=== PATIENT | female | born 1950 | race Native Hawaiian/Other Pacific Islander ===

== ENCOUNTER → 2019-08-06 | Outpatient (CLI) | payer MEDICARE, BC, OTHER ==
[2019-08-06 17:33] LABS: Chol/HDL Ratio 4.91; LDL Cholesterol,Calculated 106.8 mg/dL (0.0-131.0); VLDL Calculation 61.2 mg/dL (5.00-40.00)
== END ==
LOC: LABWHC1 08:58
PROVIDERS: ATTEND Internal Medicine Cardiovascular Disease
DX: E78.5 Hyperlipidemia, unspecified (principal)
CPT/HCPCS: 36415; 80061; 84450; 84460

== ENCOUNTER → 2019-10-01 | Outpatient (CLI) | payer MEDICARE, BC, OTHER ==
[2019-10-01 17:03] LABS: Chol/HDL Ratio 2.77; LDL Cholesterol,Calculated 39.2 mg/dL (0.0-131.0); VLDL Calculation 22.8 mg/dL (5.00-40.00)
== END | disposition home or self-care (01) ==
LOC: LABWHC1 09:10
PROVIDERS: ATTEND Internal Medicine Cardiovascular Disease
DX: E78.5 Hyperlipidemia, unspecified (principal)
CPT/HCPCS: 36415; 80061; 84450; 84460

== ENCOUNTER 2021-04-01 09:56 | Emergency (ER) | payer MEDICARE, OTHER ==
[2021-04-01] MEDS ORDERED: KETOROLAC 15 MG/ML 1 ML VIAL IM STA (10:25)
[2021-04-01] MEDS ORDERED: CYCLOBENZAPRINE 10 MG TAB PO STA (10:25)
[2021-04-01] MEDS ORDERED: LIDOCAINE 5% PATCH TOPICAL STA (10:25)
--- NOTE | 2021-04-01 10:54 | XR ---
EXAMINATION TYPE: XR lumbar spine 2 or 3V DATE OF EXAM: 04/01/2021 CLINICAL HISTORY: pain TECHNIQUE: Three views of the lumbar spine are submitted. COMPARISON: 03/18/2010 FINDINGS: Severe multilevel degenerative disc disease greatest at L3-4 L4-5 and L5-S1. There is grade 1 anterol isthesis of L5 on S1. S1 appears to be partially lumbarized. Severe facet joint arthropathy. No evide nce for compression fracture. Ventral spondylosis. Left paraspinal calcification of uncertain etiolog y. IMPRESSION: No acute fracture or dislocation is seen in the lumbar spine. Advanced degenerative changes. ICD 10 NO FRACTURE, INITIAL EVALUATION
--- NOTE | 2021-04-01 11:16 | ED ---
Back Pain HPI - General Chief Complaint: Back Pain/Injury Stated Complaint: back pain Time Seen by Provider: 04/01/21 10:04 Source: patient Limitations: no limitations - History of Present Illness Initial Comments: 21-year-old female presenting to emergency Department with a chief complaint of neck pain. Patient reports history of chronic back pain but this one is exacerbated more usual. States typically do tend to go away on their own but this one is more persistent lasting for approximately 2 weeks. Patient denies any injury to her back states the pain is exacerbated with left rotation flexion and extension of the back. Reports she went to her primary care physician who prescribed Flexeril with no significant improvement in symptoms. She denies any saddle anesthesia, urinary or bowel incontinence. She denies any direct injuries to the back. Reports the pain is extending along the posterior aspect to the lower extremity on the left side. - Related Data Previous Rx's Medication Instructions Recorded predniSONE [Deltasone] 20 mg PO DAILY #5 tab 04/01/21 Allergies Allergy/AdvReac Type Severity Reaction Status Date / Time acetaminophen Allergy Anaphylaxis Verified 04/01/21 10:02 [From Darvocet-N 100] Penicillins Allergy Rash/Hives Verified 04/01/21 10:02 propoxyphene Allergy Anaphylaxis Verified 04/01/21 10:02 [From Darvocet-N 100] Review of Systems ROS Statement: Those systems with pertinent positive or pertinent negative responses have been documented in the HPI. ROS Other: All systems not noted in ROS Statement are negative. Past Medical History Past Medical History: Chest Pain / Angina History of Any Multi-Drug Resistant Organisms: None Reported Past Surgical History: No Surgical Hx Reported Past Psychological History: No Psychological Hx Reported Smoking Status: Never smoker Past Alcohol Use History: None Reported Past Drug Use History: None Reported General Exam Limitations: no limitations General appearance: alert, in no apparent distress, obese Head exam: Present: atraumatic, normocephalic, normal inspection Eye exam: Present: normal appearance Pupils: Present: normal accommodation ENT exam: Present: normal exam, normal oropharynx, mucous membranes moist Neck exam: Present: normal inspection, full ROM. Absent: tenderness, lymphadenopathy Respiratory exam: Present: normal lung sounds bilaterally. Absent: respiratory distress, wheezes, rales, rhonchi, stridor, chest wall tenderness, accessory muscle use Cardiovascular Exam: Present: regular rate, normal rhythm, normal heart sounds. Absent: systolic murmur GI/Abdominal exam: Present: soft. Absent: distended, tenderness, guarding, rebound Extremities exam: Present: normal inspection, full ROM, normal capillary refill, other (Palpable DP and PT bilaterally.). Absent: tenderness, pedal edema, joint swelling, calf tenderness Back exam: Present: normal inspection, full ROM, tenderness, paraspinal tenderness, vertebral tenderness. Absent: CVA tenderness (R), CVA tenderness (L), muscle spasm Neurological exam: Present: alert, oriented X3 Psychiatric exam: Present: normal affect, normal mood Skin exam: Present: warm, dry, intact, normal color Course Vital Signs 04/01/21 04/01/21 04/01/21 09:59 10:14 11:18 Temperature 98.2 F 98 F Pulse Rate 74 68 Respiratory 20 17 18 Rate Blood Pressure 130/64 131/60 O2 Sat by Pulse 99 99 Oximetry Medical Decision Making - Medical Decision Making 70-year-old female presents emergency Department with a chief complaint of back pain. Acute on chronic back pain. X-ray of the lumbar spine reveals advanced degenerative disc changes particularly and L3 through S1. Advised the patient to see an customer management specialist. I gave her here anti-inflammatory medication and a Lidoderm patch and Flexeril. On reevaluation, she reports improvement in her symptoms and is able to ambulate better than before. No concern for cauda equina at this time. Return parameters were thoroughly discussed the patient is understanding and agreeable. Disposition Clinical Impression: Mechanical back pain Disposition: HOME SELF-CARE Condition: Stable Instructions (If sedation given, give patient instructions): Acute Low Back Pain (ED) Additional Instructions: Please return to the Emergency Department if symptoms worsen or any other concerns. Follow-up with customer management specialist. Prescriptions: predniSONE [Deltasone] 20 mg PO DAILY #5 tab Is patient prescribed a controlled substance at d/c from ED?: No Referrals: Joao Mcghee MD [Primary Care Provider] - 1-2 days Khai Kearney DO [Doctor of Osteopathic Medicine] - 1-2 days Time of Disposition: 11:16
[2021-04-01 11:31] VITALS: BP 131/60; PULSE 68; RESP 18; TEMP 98
== END 2021-04-01 11:25 | disposition home or self-care (01) ==
LOC: EC 09:56
DX: M54.9 Dorsalgia, unspecified (principal); G89.29 Other chronic pain; M54.2 Cervicalgia; Z88.0 Allergy status to penicillin; Z88.6 Allergy status to analgesic agent; Z88.8 Allergy status to other drugs, medicaments and biological substances
CPT/HCPCS: 72100; 99283; 96372; J1885

== ENCOUNTER → 2022-01-08 | Outpatient (CLI) | payer MEDICARE, OTHER ==
--- NOTE | 2022-01-08 13:30 | US ---
EXAMINATION TYPE: US abdomen complete DATE OF EXAM: 01/08/2022 COMPARISON: NONE CLINICAL HISTORY: D69.6 THROMBOCYTOPENIA, UNSPECIFIED. EXAM MEASUREMENTS: Liver Length: 14.3 cm CBD: 0.8 cm Spleen: 10.2 cm Right Kidney: 10.6 x 3.8 x 5.0 cm Liver: wnl Gallbladder: surgically absent Evidence for sonographic Patel's sign: no CBD: wnl for post cholecystectomy Spleen: wnl Right Kidney: wnl The liver is homogenous. The intrahepatic portion of the IVC and proximal abdominal aorta are within normal limits. Gallbladder is surgically absent. Common bile duct is unremarkable. The visualized portions of the pancreas are homogenous. The spleen is normal in size. No right-sided hydronephrosis . IMPRESSION: Normal sized liver and spleen
== END | disposition home or self-care (01) ==
LOC: RADUSWWP 12:25
PROVIDERS: ATTEND Internal Medicine Hematology & Oncology
DX: D69.6 Thrombocytopenia, unspecified (principal)
CPT/HCPCS: 76705

== ENCOUNTER → 2022-04-22 | Outpatient (CLI) | payer MEDICARE, OTHER ==
[2022-04-22 14:14] LABS: African American GFR (CKD) >90 (>60 ml/min/1.73 sqM); Blood Urea Nitrogen 14 mg/dL (7-17); Non-African American GFR(CKD) >90 (>60 ml/min/1.73 sqM)
--- NOTE | 2022-04-22 15:55 | CT ---
EXAMINATION TYPE: CT abdomen pelvis w con DATE OF EXAM: 04/22/2022 COMPARISON: Ultrasound 01/08/2022 HISTORY: 71-year-old female possible neoplasm of kidney. N28.9 disorder kidney, D49.511 TECHNIQUE: Contiguous axial scanning of the abdomen and pelvis following administration of 70 mL Isov ue 300 IV contrast. Delayed images through the kidneys and coronal/sagittal reconstructions performe d. CT DLP: 1415.30 mGycm Automated exposure control for dose reduction was used. FINDINGS: Partially visualized prominent low axillary lymph nodes on the right. Correlate with physical exam fi ndings. Heart normal size without pericardial effusion. Strandy atelectasis/scarring in the lower lungs. No p leural effusion. No focal liver lesion or biliary ductal dilatation. Portal venous system is patent. Cholecystectomy c lips. Enlarged 1.5 cm fouzia hepatic lymph node. Second fouzia hepatic lymph node measures 1.3 cm. Mildly enlarged portacaval lymph node at 1.7 cm. Retroperitoneal nodes measuring up to 2.5 cm, coronal image 50 in the aortocaval region. No mesenteric lymphadenopathy. No dilated small bowel, free fluid, or free air. Mild to moderate stool burden. There is sigmoid diverticulosis. No pericolonic inflammatory change. Moderate atherosclerotic calcifications abdominal aorta without aneurysm. There is a heterogeneously enhancing mass medial upper pole right kidney cortex measuring 2.7 cm. A c ouple less than 5 mm tiny benign cortical cysts also noted in both kidneys. Symmetric uptake and excr etion of contrast from both kidneys. Adrenal glands, spleen, and pancreas show no gross abnormality. Bladder is urine distended. Uterus surgically absent. Both ovaries are visualized. Numerous pelvic ph leboliths. No abnormal fluid collection in the pelvis. Borderline sized 1 cm left external iliac chain lymph node. Mildly enlarged 1.2 cm right external gregorio ac chain lymph node. Bones: Mild degenerative change of the hips. Advanced hypertrophic facet arthropathy especially mid t o lower lumbar spine. Nearly grade 2 anterolisthesis L4-L5. Moderate to advanced degenerative disc di sease mid to lower lumbar spine. Dictation the lower thoracic spine. Suspect at least moderate spinal canal stenoses at multiple levels mid and lower lumbar spine, possibly more severe at L4-L5. IMPRESSION: 1. HETEROGENEOUSLY ENHANCING SOLID MASS MEDIAL UPPER POLE RIGHT KIDNEY MEASURING 2.7 CM. FINDINGS HIG HLY SUGGESTIVE OF RCC. APPROPRIATE FURTHER WORKUP AND MANAGEMENT ADVISED. 2. FOUZIA HEPATIC, PORTACAVAL, RETROPERITONEAL, AND BILATERAL EXTERNAL ILIAC CHAIN LYMPH NODES ARE STEVIE IABLY ENLARGED MEASURING UP TO 2.5 CM. A LOW RIGHT AXILLARY LYMPH NODE IS PARTIALLY VISUALIZED AND AL SO APPEARS PROMINENT IN SIZE. METASTATIC DISEASE AND A SYNCHRONOUS LYMPHOMA SHOULD BE EXCLUDED. 3. SIGMOID DIVERTICULOSIS WITHOUT ACUTE DIVERTICULITIS. 4. ADVANCED SPONDYLOTIC CHANGE ESPECIALLY MID TO LOWER CERVICAL SPINE. POSSIBLE SEVERE SPINAL CANAL S TENOSIS L4-L5.
== END | disposition home or self-care (01) ==
LOC: RADCTMAIN 12:05
PROVIDERS: ATTEND Orthopaedic Surgery Orthopaedic Surgery of the Spine
DX: M43.16 Spondylolisthesis, lumbar region (principal); M47.812 Spondylosis without myelopathy or radiculopathy, cervical region; N28.9 Disorder of kidney and ureter, unspecified; M79.12 Myalgia of auxiliary muscles, head and neck; M47.816 Spondylosis without myelopathy or radiculopathy, lumbar region; M50.322 Other cervical disc degeneration at C5-C6 level; M50.323 Other cervical disc degeneration at C6-C7 level; M16.12 Unilateral primary osteoarthritis, left hip; M16.11 Unilateral primary osteoarthritis, right hip; M48.062 Spinal stenosis, lumbar region with neurogenic claudication; D49.511 Neoplasm of unspecified behavior of right kidney
CPT/HCPCS: 82565; 84520; 74177; 36415; Q9967

== ENCOUNTER → 2022-11-10 | Outpatient (CLI) | payer MEDICARE, OTHER ==
[2022-11-10 17:07] LABS: ALT 23 U/L (8-44); AST 24 U/L (13-35); Albumin 4.6 g/dL (3.8-4.9); Albumin/Globulin Ratio 1.59 (1.60-3.17); Alkaline Phosphatase 93 U/L (41-126); BUN/Creat Ratio 17.25 Ratio (12.00-20.00); Blood Urea Nitrogen 13.8 mg/dL (9.0-27.0); Calcium 9.6 mg/dL (8.7-10.3); Carbon Dioxide 25.9 mmol/L (20.0-27.5); Chloride 104 mmol/L (96-109); Chol/HDL Ratio 7.28 Ratio; Globulin 2.9 g/dL (1.6-3.3); Glucose 100 mg/dL (70-110); LDL Cholesterol,Calculated 130.9 mg/dL (0.0-131.0); Non-African American GFR(CKD) 74.2 (60.0-200.0); Potassium 4.5 mmol/L (3.5-5.5); Sodium 141 mmol/L (135-145); Total Protein 7.5 g/dL (6.2-8.2)
[2022-11-10 18:07] LABS: Basophils # (A) 0.08 X 10*3/uL (0.00-0.10); Eosinophils # (A) 0.33 X 10*3/uL (0.04-0.35); Eosinophils % (A) 4.3 %; HCT 44.2 % (37.2-46.3); HGB 14.4 g/dL (12.0-15.0); Immature Grans, Automated 0.4 %; Lymphocytes # (A) 4.49 X 10*3/uL (0.90-5.00); Lymphocytes % (A) 58.6 %; MCH 29.1 pg (27.0-32.0); MCHC 32.6 g/dL (32.0-37.0); MCV 89.5 fL (80.0-97.0); Mean Platelet Volume 11.1 fL (9.5-12.2); Monocytes # (A) 0.64 X 10*3/uL (0.20-1.00); Monocytes % (A) 8.4 %; NRBC Per 100 WBC 0 /100 WBCS (0.0-0.0); Neutrophils # (A) 2.09 X 10*3/uL (1.80-7.70); Neutrophils % (A) 27.3 %; Platelet Count 136 X 10*3/uL (140-440); RBC 4.94 X 10*6/uL (4.10-5.20); RDW 13.1 % (11.5-14.5); WBC 7.66 X 10*3/uL (4.50-10.00)
== END | disposition home or self-care (01) ==
LOC: LABWHC1 11:32
PROVIDERS: ATTEND Family Medicine
DX: Z00.00 Encounter for general adult medical examination without abnormal findings (principal); C64.9 Malignant neoplasm of unspecified kidney, except renal pelvis; C91.10 Chronic lymphocytic leukemia of B-cell type not having achieved remission; R53.82 Chronic fatigue, unspecified; R73.03 Prediabetes
CPT/HCPCS: 36415; 80053; 80061; 84439; 84443; 85025

== ENCOUNTER 2023-01-03 21:05 | Emergency (ER) | payer MEDICARE, OTHER ==
[2023-01-03 21:24] VITALS: BP 150/70; PULSE 72; RESP 18; TEMP 98.2
--- NOTE | 2023-01-03 22:05 | ED ---
General Adult HPI - General Chief complaint: Skin/Abscess/Foreign Body Stated complaint: Finger swelling Time Seen by Provider: 01/03/23 21:24 Source: patient, family, RN notes reviewed Mode of arrival: ambulatory Limitations: no limitations - History of Present Illness Initial comments: 72-year-old female with no significant past medical history presents the emergency department with a chief complaint of right finger swelling. Patient reports yesterday she hit her right third digit on a box spring. She reports Clean the area with hydrogen peroxide. Today she reports worsening and color change to the third digit. She denies pain. She does admit that there is some numbness to the digit. She has not taken anything for his symptoms. She does not believe there is a retained foreign body - Related Data Previous Rx's Medication Instructions Recorded predniSONE [Deltasone] 20 mg PO DAILY #5 tab 04/01/21 Cephalexin [Keflex] 500 mg PO Q6HR #40 cap 01/03/23 Allergies Allergy/AdvReac Type Severity Reaction Status Date / Time acetaminophen Allergy Anaphylaxis Verified 01/03/23 21:19 [From Darvocet-N 100] Penicillins Allergy Rash/Hives Verified 01/03/23 21:19 propoxyphene Allergy Anaphylaxis Verified 01/03/23 21:19 [From Darvocet-N 100] Review of Systems ROS Statement: Those systems with pertinent positive or pertinent negative responses have been documented in the HPI. ROS Other: All systems not noted in ROS Statement are negative. Past Medical History Past Medical History: Chest Pain / Angina, Hyperlipidemia Additional Past Medical History / Comment(s): leukemia History of Any Multi-Drug Resistant Organisms: None Reported Past Surgical History: Cholecystectomy, Heart Catheterization, Hernia Repair Past Psychological History: No Psychological Hx Reported Smoking Status: Never smoker Past Alcohol Use History: None Reported Past Drug Use History: None Reported General Exam - General Exam Comments Initial Comments: General: Alert, in no acute distress Head: atraumatic normocephalic. Eyes PERRL, EOMI intact, mucous membranes moist Respiratory: Lungs clear to auscultation bilaterally Cardiovascular: Heart rate regular rate and rhythm Abdominal: Soft without guarding or rebound Extremities: Normal inspection with full range of motion and normal capillary refill, right third digit with mild discoloration that appears ecchymotic full range of motion 5 out of 5 strength. 2+ radial pulses distal NVI remains intact Neuroogic: alert and oriented 3, CN II-XII intact, able to ambulate with steady gait Skin: warm dry and intact with normal color Limitations: no limitations Course Vital Signs 01/03/23 21:19 Temperature 98.2 F Pulse Rate 72 Respiratory 18 Rate Blood Pressure 150/70 O2 Sat by Pulse 98 Oximetry Medical Decision Making - Medical Decision Making Was pt. sent in by a medical professional or institution (MARY Han, CUSTOMER OPERATIONS INTERN, urgent care, hospital, or long term...) When possible be specific @ -[No] Did you speak to anyone other than the patient for history (EMS, parent, family, police, friend...)? What history was obtained from this source @ -[No] Did you review nursing and triage notes (agree or disagree)? Why? @ -[I reviewed and agree with nursing and triage notes] Were old charts reviewed (outside hosp., previous admission, EMS record, old EK G, old radiological studies, urgent care reports/EKG's, long term records)? Report findings @ -[No old charts were reviewed] Differential Diagnosis (chest pain, altered mental status, abdominal pain women, abdominal pain men, vaginal bleeding, weakness, fever, dyspnea, syncope, headache, dizziness, GI bleed, back pain, seizure, CVA, palpatations, mental he alth, musculoskeletal)? @ -[not applicable] EKG interpreted by me (3pts min.). @ -[As above] X-rays interpreted by me (1pt min.). @ -Unremarkable CT interpreted by me (1pt min.). @ -[None done] U/S interpreted by me (1pt. min.). @ -[None done] What testing was considered but not performed or refused? (CT, X-rays, U/S, labs)? Why? @ -[None] What meds were considered but not given or refused? Why? @ -[None] Did you discuss the management of the patient with other professionals (professionals i.e. MARY Han, CUSTOMER OPERATIONS INTERN, lab, RT, psych nurse, social media strategist, roaster helper, teacher, transit authority police officer, dependency case manager)? Give summary @ -[No] Was smoking cessation discussed for >3mins.? @ -[No] Was critical care preformed (if so, how long)? @ -[No] Were there social determinants of health that impacted care today? How? (Homelessness, low income, unemployed, alcoholism, drug addiction, transportation, low edu. Level, literacy, decrease access to med. care, [facility], rehab)? @ -[No] Was there de-escalation of care discussed even if they declined (Discuss DNR or withdrawal of care, Hospice)? DNR status @ -[No] What co-morbidities impacted this encounter? (DM, HTN, Smoking, COPD, CAD, Cancer, CVA, ARF, Chemo, Hep., AIDS, mental health diagnosis, sleep apnea, morb id obesity)? @ -[None] Was patient admitted / discharged? Hospital course, mention meds given and route, prescriptions, significant lab abnormalities, going to OR and other pertinent info. @ Discharged. This 72-year-old female who presents the emergency department with finger problem. Patient had a thorough history and physical exam performed on the ED. Right middle finger with mild discoloration. No swelling erythema, edema, fluctuance. No crepitus. Full range of motion. Patient was lab work and imaging performed the ED with symptomatic unremarkable. I discussed the results in detail the patient verbalized understanding and all questions were addressed. She'll be discharged home in stable condition. Case discussed with Dr. Meneses, [facility] who agrees with plan of care. Undiagnosed new problem with uncertain prognosis? @ -[No] Drug Therapy requiring intensive monitoring for toxicity (Heparin, Nitro, Insulin, Cardizem)? @ -[No] Were any procedures done? @ -[No] Diagnosis/symptom? @ -finger problem Acute, or Chronic, or Acute on Chronic? @ -Acute Uncomplicated (without systemic symptoms) or Complicated (systemic symptoms)? @ -Uncomplciated Side effects of treatment? @ -[No] Exacerbation, Progression, or Severe Exacerbation? @ -[No] Poses a threat to life or bodily function? How? (Chest pain, [place], [place], pneumonia, PE, COPD, DKA, ARF, appy, cholecystitis, CVA, Diverticulitis, Homicidal, Suicidal, threat to staff... and all critical care pts) @ Low likelihood - Lab Data Result diagrams: 01/03/23 21:51 01/03/23 21:51 Lab Results 01/03/23 01/03/23 Range/Units 21:51 21:51 WBC 11.3 H (3.8-10.6) k/uL RBC 4.68 (3.80-5.40) m/uL Hgb 13.5 (11.4-16.0) gm/dL Hct 41.5 (34.0-46.0) % MCV 88.6 (80.0-100.0) fL MCH 28.8 (25.0-35.0) pg MCHC 32.5 (31.0-37.0) g/dL RDW 13.0 (11.5-15.5) % Plt Count 86 L (150-450) k/uL MPV 9.5 Neutrophils % 32 % Lymphocytes % 56 % Monocytes % 4 % Eosinophils % 4 % Basophils % 1 % Neutrophils # 3.5 (1.3-7.7) k/uL Lymphocytes # 6.3 H (1.0-4.8) k/uL Monocytes # 0.5 (0-1.0) k/uL Eosinophils # 0.5 (0-0.7) k/uL Basophils # 0.1 (0-0.2) k/uL Manual Slide Review Performed ESR 6 (0-20) mm/hr Sodium 141 (137-145) mmol/L Potassium 4.0 (3.5-5.1) mmol/L Chloride 107 (98-107) mmol/L Carbon Dioxide 26 (22-30) mmol/L Anion Gap 8 mmol/L BUN 17 (7-17) mg/dL Creatinine 0.72 (0.52-1.04) mg/dL Est GFR (CKD-EPI)AfAm >90 (>60 ml/min/1.73 sqM) Est GFR (CKD-EPI)NonAf 85 (>60 ml/min/1.73 sqM) Glucose 105 H (74-99) mg/dL Calcium 8.7 (8.4-10.2) mg/dL Total Bilirubin 0.4 (0.2-1.3) mg/dL AST 28 (14-36) U/L ALT 22 (4-34) U/L Alkaline Phosphatase 72 (38-126) U/L C-Reactive Protein <0.5 (<1.0) mg/dL Total Protein 7.1 (6.3-8.2) g/dL Albumin 4.3 (3.5-5.0) g/dL Disposition Clinical Impression: Hand problems Disposition: HOME SELF-CARE Condition: Stable Instructions (If sedation given, give patient instructions): Cellulitis (ED) Additional Instructions: These return to the nearest emergency department if symptoms worsen or persist Prescriptions: Cephalexin [Keflex] 500 mg PO Q6HR #40 cap Is patient prescribed a controlled substance at d/c from ED?: No Referrals: Joao Mgchee MD [Primary Care Provider] - 1-2 days Time of Disposition: 23:03
[2023-01-03 22:17] LABS: Basophils # (A) 0.1 k/uL (0-0.2); Basophils % (A) 1 %; Eosinophils # (A) 0.5 k/uL (0-0.7); Eosinophils % (A) 4 %; HCT 41.5 % (34.0-46.0); HGB 13.5 gm/dL (11.4-16.0); Lymphocytes # (A) 6.3 k/uL (1.0-4.8); Lymphocytes % (A) 56 %; MCH 28.8 pg (25.0-35.0); MCHC 32.5 g/dL (31.0-37.0); MCV 88.6 fL (80.0-100.0); Mean Platelet Volume 9.5; Monocytes # (A) 0.5 k/uL (0-1.0); Monocytes % (A) 4 %; Neutrophils # (A) 3.5 k/uL (1.3-7.7); Neutrophils % (A) 32 %; RBC 4.68 m/uL (3.80-5.40); WBC 11.3 k/uL (3.8-10.6)
[2023-01-03 22:21] LABS: ALT 22 U/L (4-34); AST 28 U/L (14-36); African American GFR (CKD) >90 (>60 ml/min/1.73 sqM); Albumin 4.3 g/dL (3.5-5.0); Alkaline Phosphatase 72 U/L (38-126); Anion Gap 8 mmol/L; Blood Urea Nitrogen 17 mg/dL (7-17); C Reactive Protein <0.5 mg/dL (<1.0); Calcium 8.7 mg/dL (8.4-10.2); Carbon Dioxide 26 mmol/L (22-30); Chloride 107 mmol/L (98-107); Glucose 105 mg/dL (74-99); Non-African American GFR(CKD) 85 (>60 ml/min/1.73 sqM); Sodium 141 mmol/L (137-145); Total Bilirubin 0.4 mg/dL (0.2-1.3); Total Protein 7.1 g/dL (6.3-8.2)
[2023-01-03] MEDS ORDERED: CEPHALEXIN 500 MG CAP PO STA (23:01)
[2023-01-03] MEDS ORDERED: DIPH,PERTUS(ACELL)TETVAC-LF 0.5 ML VIAL IM ONE (23:01)
[2023-01-03 23:03] LABS: Erythrocyte Sedimentation Rate 6 mm/hr (0-20)
[2023-01-03 23:45] LABS: Platelet Count 86 k/uL (150-450)
--- NOTE | 2023-01-03 23:48 | XR ---
EXAM: XR Right Hand Complete, 3 or More Views CLINICAL HISTORY: ITS.REASON XR Reason: 3rd digit discoloration TECHNIQUE: Frontal, lateral and oblique views of the right hand. COMPARISON: No relevant prior studies available. FINDINGS: Bones/joints: Moderate degenerative disease of the first CMC joint and mild joint space narrowing of the radiocarpal joints. Diffuse interphalangeal joint space narrowing particularly at the distal IP joints. No acute fracture. No dislocation. Soft tissues: Unremarkable. No radiopaque foreign body. IMPRESSION: No acute osseous pathology
== END 2023-01-03 23:23 | disposition home or self-care (01) ==
LOC: EC 21:05
DX: M79.644 Pain in right finger(s) (principal); Z88.0 Allergy status to penicillin; Z88.8 Allergy status to other drugs, medicaments and biological substances; Z23 Encounter for immunization
CPT/HCPCS: 36415; 80053; 85025; 85652; 86140; 90471; 90715; 99284

== ENCOUNTER 2023-06-11 14:40 | Inpatient (IN) | payer MEDICARE, OTHER ==
--- NOTE | 2023-06-11 15:41 | ED ---
Syncope HPI - General Chief Complaint: Headache Stated Complaint: Head pressure Time Seen by Provider: 06/11/23 15:14 Source: patient, EMS, RN notes reviewed, old records reviewed Mode of arrival: EMS Limitations: no limitations - History of Present Illness Initial Comments: This 72-year-old female to the emergency department for evaluation of a near sy ncopal event. This happened 3 times prior decided to come to the emergency room today. Patient estimates including in the kitchen bent down to pick something up off the ground like the room went black and she had persistent symptoms each time she tried move after that. She is brought in the emergency department tonight. Patient has no chest pain she has have a headache. No recent trauma fevers or illnesses no nausea vomiting diarrhea. No prior history of syncopal event MD Complaint: almost passed out -: hour(s) Prodromal Symptoms: vision changes, lightheaded, palpitations, diaphoresis Witnessed: yes - by bystander Injuries Sustained Associated with Event: None Current Symptoms: lightheaded Context: during exertion, standing up Treatments Prior to Arrival: none - Related Data Home Medications Medication Instructions Recorded Confirmed Cyclobenzaprine [Flexeril] 10 mg PO TID PRN 06/11/23 06/11/23 HYDROcodone/APAP 5-325MG [[place] 1 tab PO Q6H PRN 06/11/23 06/11/23 5-325] Hylands Leg Cramps Caplets 1 - 2 cap PO Q4H PRN 06/11/23 06/11/23 Umeclidinium Brm/Vilanterol Tr 1 puff INHALATION RT-DAILY 06/11/23 06/11/23 [Anoro Ellipta 62.5-25 Mcg INH] Previous Rx's Medication Instructions Recorded Cephalexin [Keflex] 250 mg PO TID 7 Days #21 cap 06/15/23 Allergies Allergy/AdvReac Type Severity Reaction Status Date / Time Penicillins Allergy Rash/Hives Verified 06/11/23 17:38 propoxyphene Allergy Rash/Hives Verified 06/11/23 17:38 [From Darvocet-N 100] atorvastatin AdvReac severe leg Verified 06/11/23 17:44 cramps Review of Systems ROS Statement: Those systems with pertinent positive or pertinent negative responses have been documented in the HPI. ROS Other: All systems not noted in ROS Statement are negative. Past Medical History Past Medical History: Chest Pain / Angina, Hyperlipidemia Additional Past Medical History / Comment(s): leukemia History of Any Multi-Drug Resistant Organisms: None Reported Past Surgical History: Cholecystectomy, Heart Catheterization, Hernia Repair Past Psychological History: No Psychological Hx Reported Smoking Status: Never smoker Past Alcohol Use History: None Reported Past Drug Use History: None Reported General Exam Limitations: no limitations General appearance: alert, in no apparent distress Head exam: Present: atraumatic, normocephalic, normal inspection Eye exam: Present: normal appearance, PERRL, EOMI. Absent: scleral icterus, conjunctival injection, periorbital swelling ENT exam: Present: normal exam, mucous membranes moist Neck exam: Present: normal inspection. Absent: tenderness, meningismus, lymphadenopathy Respiratory exam: Present: normal lung sounds bilaterally. Absent: respiratory distress, wheezes, rales, rhonchi, stridor Cardiovascular Exam: Present: regular rate, normal rhythm, normal heart sounds. Absent: systolic murmur, diastolic murmur, rubs, gallop, clicks GI/Abdominal exam: Present: soft, normal bowel sounds. Absent: distended, tend erness, guarding, rebound, rigid Extremities exam: Present: normal inspection, full ROM, normal capillary refill. Absent: tenderness, pedal edema, joint swelling, calf tenderness Back exam: Present: normal inspection Neurological exam: Present: alert, oriented X3, CN II-XII intact Psychiatric exam: Present: normal affect, normal mood Skin exam: Present: warm, dry, intact, normal color. Absent: rash Course Vital Signs 06/11/23 06/11/23 06/11/23 14:43 17:30 18:20 Temperature 98.1 F 98.1 F Pulse Rate 82 74 71 Pulse Rate [ Pulse Oximetery ] Respiratory 18 18 18 Rate Blood Pressure 116/56 155/71 172/84 Blood Pressure [Left Arm] O2 Sat by Pulse 97 96 95 Oximetry 06/11/23 06/11/23 06/11/23 19:23 20:00 22:00 Temperature Pulse Rate 68 70 77 Pulse Rate [ Pulse Oximetery ] Respiratory 18 18 18 Rate Blood Pressure 158/76 158/76 151/78 Blood Pressure [Left Arm] O2 Sat by Pulse 96 96 96 Oximetry 06/11/23 06/11/23 06/12/23 22:29 23:31 00:00 Temperature 97.8 F Pulse Rate 58 L 70 Pulse Rate [ 77 Pulse Oximetery ] Respiratory 11 L 17 34 H Rate Blood Pressure 127/65 109/52 Blood Pressure 120/45 [Left Arm] O2 Sat by Pulse 98 Oximetry 06/12/23 06/12/23 06/12/23 02:00 08:27 10:46 Temperature 97.7 F Pulse Rate 56 L 62 58 L Pulse Rate [ 77 Pulse Oximetery ] Respiratory 13 18 18 Rate Blood Pressure 106/50 123/72 124/86 Blood Pressure 121/56 [Left Arm] O2 Sat by Pulse 98 96 98 Oximetry 06/12/23 06/12/23 06/12/23 12:00 14:00 15:27 Temperature Pulse Rate 57 L 61 58 L Pulse Rate [ Pulse Oximetery ] Respiratory 18 20 Rate Blood Pressure 136/109 120/74 Blood Pressure [Left Arm] O2 Sat by Pulse Oximetry 06/12/23 15:36 Temperature Pulse Rate 54 L Pulse Rate [ Pulse Oximetery ] Respiratory Rate Blood Pressure Blood Pressure [Left Arm] O2 Sat by Pulse Oximetry - Reevaluation(s) Reevaluation #1: 06/11/23 19:37 Medical records reviewed Reevaluation #2: 06/11/23 19:37 Patient still feels unwell here in the ER like she may pass out Reevaluation #3: 06/11/23 19:38 Patient informed results questions answered Reevaluation #4: 06/11/23 19:38 Was pt. sent in by a medical professional or institution (, PA, PHOTOVOLTAIC PANEL INSTALLER, urgent care, hospital, or senior living...) When possible be specific @ -no Did you speak to anyone other than the patient for history (EMS, parent, family, police, friend...)? What history was obtained from this source @ -no Did you review nursing and triage notes (agree or disagree)? Why? @ -agree Are old charts reviewed (outside hosp., previous admission, EMS record, old EKG, old radiological studies, urgent care reports/EKG's, senior living records)? Report findings @ -yes Differential Diagnosis (chest pain, altered mental status, abdominal pain women, abdominal pain men, vaginal bleeding, weakness, fever, dyspnea, syncope, headache, dizziness, GI bleed, back pain, seizure, CVA, palpatations, mental health, musculoskeletal)? @ -prior EKG interpreted by me (3pts min.). @ -yes X-rays interpreted by me (1pt min.). @ -no CT interpreted by me (1pt min.). @ -yes U/S interpreted by me (1pt. min.). @ -no What testing was considered but not performed or refused? (CT, X-rays, U/S, labs)? Why? @ -none What meds were considered but not given or refused? Why? @ -none Did you discuss the management of the patient with other professionals (professionals i.e. , PA, PHOTOVOLTAIC PANEL INSTALLER, lab, RT, psych nurse, social scientist, high school mathematics teacher, teacher, commercial loan officer, case reviewer)? Give summary @ -no Was smoking cessation discussed for >3mins.? @ -no Was critical care preformed (if so, how long)? @ -no Were there social determinants of health that impacted care today? How? (Homelessness, low income, unemployed, alcoholism, drug addiction, transportation, low edu. Level, literacy, decrease access to med. care, custodial, rehab)? @ -none Was there de-escalation of care discussed even if they declined (Discuss DNR or withdrawal of care, Hospice)? DNR status @ -no What co-morbidities impacted this encounter? (DM, HTN, Smoking, COPD, CAD, Cancer, CVA, ARF, Chemo, Hep., AIDS, mental health diagnosis, sleep apnea, morbid obesity)? @ -none Was patient admitted / discharged? Hospital course, mention meds given and route, prescriptions, significant lab abnormalities, going to OR and other pertinent info. @ - 72 female to the emergency department for evaluation of syncopal event near syncopal event with headache. Patient has no imaging here in the ER will be admitted for syncopal or possible causes near syncopal event Admitted Undiagnosed new problem with uncertain prognosis? @ -no Drug Therapy requiring intensive monitoring for toxicity (Heparin, Nitro, Insulin, Cardizem)? @ -no Were any procedures done? @ -no Diagnosis/symptom? @ -Syncope, near syncope, headache Acute, or Chronic, or Acute on Chronic? @ -Acute Uncomplicated (without systemic symptoms) or Complicated (systemic symptoms)? @ -Complicated Side effects of treatment? @ -no Exacerbation, Progression, or Severe Exacerbation? @ -exacerbation Poses a threat to life or bodily function? How? (Chest pain, USA, PR, pneumonia, PE, COPD, DKA, ARF, appy, cholecystitis, CVA, Diverticulitis, Homicidal, Suicidal, threat to staff... and all critical care pts) @ -yes with syncopal event Reevaluation #5: 06/11/23 19:38 Differential Syncope: Valvular disease, hypertrophic cardiomyopathy, pulmonary embolism, tamponade, tachycardia, bradycardia, PR, hypovolemia, hemorrhage, dissection, anemia, intracranial hemorrhage, seizure, hypoglycemia, carbon monoxide poisoning, this is not meant to be an all-inclusive list. - Consultations Consultation #1: Spoke with admitting physicians patient's agree to admit this patient EKG Findings - EKG Comments: EKG Findings:: EKG sinus 67 NV 135 QRS 149 QTC 439 - EKG Results: EKG: interpreted by TATY Medical Decision Making - Medical Decision Making 72 female to the emergency department for evaluation of syncopal event near syncopal event with headache. Patient has no imaging here in the ER will be admitted for syncopal or possible causes near syncopal event - Lab Data Result diagrams: 06/13/23 04:23 06/13/23 04:23 Lab Results 06/11/23 06/11/23 06/11/23 Range/Units 15:44 15:44 15:44 WBC 8.7 (3.8-10.6) k/uL RBC 4.47 (3.80-5.40) m/uL Hgb 13.7 (11.4-16.0) gm/dL Hct 39.9 (34.0-46.0) % MCV 89.3 (80.0-100.0) fL MCH 30.7 (25.0-35.0) pg MCHC 34.3 (31.0-37.0) g/dL RDW 13.0 (11.5-15.5) % Plt Count 81 L (150-450) k/uL Estimated Plt Count (Adequate) MPV 11.7 Absolute Nucleated RBC % Neutrophils % 37 % Neutrophils % (Manual) % Lymphocytes % 49 % Lymphocytes % (Manual) % Monocytes % 6 % Monocytes % (Manual) % Eosinophils % 4 % Eosinophils % (Manual) % Basophils % 0 % Basophils % (Manual) % Neutrophils # 3.2 (1.3-7.7) k/uL Neutrophils # (Manual) (1.80-7.70) X 10*3/uL Lymphocytes # 4.3 (1.0-4.8) k/uL Lymphocytes # (Manual) (0.90-5.00) X 10*3/uL Monocytes # 0.5 (0-1.0) k/uL Monocytes # (Manual) (0.20-1.00) X 10*3/uL Eosinophils # 0.3 (0-0.7) k/uL Eosinophils # (Manual) (0.04-0.35) X 10*3/uL Basophils # 0.0 (0-0.2) k/uL Basophils # (Manual) (0.00-0.10) X 10*3/uL NRBC/100 WBC Diff (0.00-0.01) X 10*3/uL Manual Slide Review Performed Large Platelets Present Immature Plt Fraction (1.1-6.1) % RBC Morphology (Normal) Polychromasia Present PT 10.0 (10.0-12.5) sec INR 0.9 (<1.2) APTT 19.8 L (22.0-30.0) sec D-Dimer 0.42 (<0.60) mg/L FEU Sodium 140 (137-145) mmol/L Potassium 4.0 (3.5-5.1) mmol/L Chloride 108 H (98-107) mmol/L Carbon Dioxide 23 (22-30) mmol/L Anion Gap 9 mmol/L BUN 16 (7-17) mg/dL Creatinine 0.64 (0.52-1.04) mg/dL Est GFR (CKD-EPI) (>=60) Est GFR (CKD-EPI)AfAm >90 (>60 ml/min/1.73 sqM) Est GFR (CKD-EPI)NonAf >90 (>60 ml/min/1.73 sqM) BUN/Creatinine Ratio (12.00-20.00) Ratio Glucose 112 H (74-99) mg/dL Plasma Lactic Acid P[place]co (0.7-2.0) mmol/L Calcium 8.7 (8.4-10.2) mg/dL Phosphorus 3.6 (2.5-4.5) mg/dL Magnesium 2.0 (1.6-2.3) mg/dL Total Bilirubin 0.4 (0.2-1.3) mg/dL AST 29 (14-36) U/L ALT 22 (4-34) U/L Alkaline Phosphatase 78 (38-126) U/L Troponin I (0.000-0.034) ng/mL NT-Pro-B Natriuret Pep 140 pg/mL Total Protein 6.6 (6.3-8.2) g/dL Albumin 4.0 (3.5-5.0) g/dL Globulin (1.6-3.3) g/dL Albumin/Globulin Ratio (1.60-3.17) Ratio TSH 1.470 (0.465-4.680) mIU/L 06/11/23 06/11/23 06/11/23 Range/Units 15:44 17:10 20:26 WBC (3.8-10.6) k/uL RBC (3.80-5.40) m/uL Hgb (11.4-16.0) gm/dL Hct (34.0-46.0) % MCV (80.0-100.0) fL MCH (25.0-35.0) pg MCHC (31.0-37.0) g/dL RDW (11.5-15.5) % Plt Count (150-450) k/uL Estimated Plt Count (Adequate) MPV Absolute Nucleated RBC % Neutrophils % % Neutrophils % (Manual) % Lymphocytes % % Lymphocytes % (Manual) % Monocytes % % Monocytes % (Manual) % Eosinophils % % Eosinophils % (Manual) % Basophils % % Basophils % (Manual) % Neutrophils # (1.3-7.7) k/uL Neutrophils # (Manual) (1.80-7.70) X 10*3/uL Lymphocytes # (1.0-4.8) k/uL Lymphocytes # (Manual) (0.90-5.00) X 10*3/uL Monocytes # (0-1.0) k/uL Monocytes # (Manual) (0.20-1.00) X 10*3/uL Eosinophils # (0-0.7) k/uL Eosinophils # (Manual) (0.04-0.35) X 10*3/uL Basophils # (0-0.2) k/uL Basophils # (Manual) (0.00-0.10) X 10*3/uL NRBC/100 WBC Diff (0.00-0.01) X 10*3/uL Manual Slide Review Large Platelets Immature Plt Fraction (1.1-6.1) % RBC Morphology (Normal) Polychromasia PT (10.0-12.5) sec INR (<1.2) APTT (22.0-30.0) sec D-Dimer (<0.60) mg/L FEU Sodium (137-145) mmol/L Potassium (3.5-5.1) mmol/L Chloride (98-107) mmol/L Carbon Dioxide (22-30) mmol/L Anion Gap mmol/L BUN (7-17) mg/dL Creatinine (0.52-1.04) mg/dL Est GFR (CKD-EPI) (>=60) Est GFR (CKD-EPI)AfAm (>60 ml/min/1.73 sqM) Est GFR (CKD-EPI)NonAf (>60 ml/min/1.73 sqM) BUN/Creatinine Ratio (12.00-20.00) Ratio Glucose (74-99) mg/dL Plasma Lactic Acid [place] 1.0 (0.7-2.0) mmol/L Calcium (8.4-10.2) mg/dL Phosphorus (2.5-4.5) mg/dL Magnesium (1.6-2.3) mg/dL Total Bilirubin (0.2-1.3) mg/dL AST (14-36) U/L ALT (4-34) U/L Alkaline Phosphatase (38-126) U/L Troponin I <0.012 <0.012 (0.000-0.034) ng/mL NT-Pro-B Natriuret Pep pg/mL Total Protein (6.3-8.2) g/dL Albumin (3.5-5.0) g/dL Globulin (1.6-3.3) g/dL Albumin/Globulin Ratio (1.60-3.17) Ratio TSH (0.465-4.680) mIU/L 06/12/23 06/12/23 06/12/23 Range/Units 00:00 05:51 05:51 WBC 9.12 (3.8-10.6) k/uL RBC 4.18 (3.80-5.40) m/uL Hgb 12.5 (11.4-16.0) gm/dL Hct 38.4 (34.0-46.0) % MCV 91.9 (80.0-100.0) fL MCH 29.9 (25.0-35.0) pg MCHC 32.6 (31.0-37.0) g/dL RDW 12.9 (11.5-15.5) % Plt Count 59 L (150-450) k/uL Estimated Plt Count Decreased (Adequate) MPV 12.8 H Absolute Nucleated RBC 0 % Neutrophils % % Neutrophils % (Manual) 24 % Lymphocytes % % Lymphocytes % (Manual) 69 % Monocytes % % Monocytes % (Manual) 4 % Eosinophils % % Eosinophils % (Manual) 2 % Basophils % % Basophils % (Manual) 1 % Neutrophils # (1.3-7.7) k/uL Neutrophils # (Manual) 2.19 (1.80-7.70) X 10*3/uL Lymphocytes # (1.0-4.8) k/uL Lymphocytes # (Manual) 6.29 H (0.90-5.00) X 10*3/uL Monocytes # (0-1.0) k/uL Monocytes # (Manual) 0.36 (0.20-1.00) X 10*3/uL Eosinophils # (0-0.7) k/uL Eosinophils # (Manual) 0.18 (0.04-0.35) X 10*3/uL Basophils # (0-0.2) k/uL Basophils # (Manual) 0.09 (0.00-0.10) X 10*3/uL NRBC/100 WBC Diff 0 (0.00-0.01) X 10*3/uL Manual Slide Review Man and Morph Large Platelets Immature Plt Fraction 10.6 H (1.1-6.1) % RBC Morphology (Normal) Polychromasia PT (10.0-12.5) sec INR (<1.2) APTT (22.0-30.0) sec D-Dimer (<0.60) mg/L FEU Sodium 141 (137-145) mmol/L Potassium 3.6 (3.5-5.1) mmol/L Chloride 110 H (98-107) mmol/L Carbon Dioxide 21.5 L (22-30) mmol/L Anion Gap 9.50 mmol/L BUN 13.6 (7-17) mg/dL Creatinine 0.7 (0.52-1.04) mg/dL Est GFR (CKD-EPI) 92 (>=60) Est GFR (CKD-EPI)AfAm (>60 ml/min/1.73 sqM) Est GFR (CKD-EPI)NonAf (>60 ml/min/1.73 sqM) BUN/Creatinine Ratio 19.43 (12.00-20.00) Ratio Glucose 98 (74-99) mg/dL Plasma Lactic Acid [place] (0.7-2.0) mmol/L Calcium 8.6 L (8.4-10.2) mg/dL Phosphorus 3.8 (2.5-4.5) mg/dL Magnesium 1.9 (1.6-2.3) mg/dL Total Bilirubin 0.5 (0.2-1.3) mg/dL AST 19 (14-36) U/L ALT 16 (4-34) U/L Alkaline Phosphatase 69 (38-126) U/L Troponin I <0.012 (0.000-0.034) ng/mL NT-Pro-B Natriuret Pep pg/mL Total Protein 5.6 L (6.3-8.2) g/dL Albumin 3.8 (3.5-5.0) g/dL Globulin 1.8 (1.6-3.3) g/dL Albumin/Globulin Ratio 2.11 (1.60-3.17) Ratio TSH (0.465-4.680) mIU/L 06/12/23 06/13/23 06/13/23 Range/Units 05:51 04:23 04:23 WBC 10.56 H (3.8-10.6) k/uL RBC 4.35 (3.80-5.40) m/uL Hgb 12.9 (11.4-16.0) gm/dL Hct 39.2 (34.0-46.0) % MCV 90.1 (80.0-100.0) fL MCH 29.7 (25.0-35.0) pg MCHC 32.9 (31.0-37.0) g/dL RDW 12.9 (11.5-15.5) % Plt Count 58 L (150-450) k/uL Estimated Plt Count (Adequate) MPV 11.7 Absolute Nucleated RBC 0 % Neutrophils % % Neutrophils % (Manual) % Lymphocytes % % Lymphocytes % (Manual) % Monocytes % % Monocytes % (Manual) % Eosinophils % % Eosinophils % (Manual) % Basophils % % Basophils % (Manual) % Neutrophils # (1.3-7.7) k/uL Neutrophils # (Manual) (1.80-7.70) X 10*3/uL Lymphocytes # (1.0-4.8) k/uL Lymphocytes # (Manual) (0.90-5.00) X 10*3/uL Monocytes # (0-1.0) k/uL Monocytes # (Manual) (0.20-1.00) X 10*3/uL Eosinophils # (0-0.7) k/uL Eosinophils # (Manual) (0.04-0.35) X 10*3/uL Basophils # (0-0.2) k/uL Basophils # (Manual) (0.00-0.10) X 10*3/uL NRBC/100 WBC Diff 0 (0.00-0.01) X 10*3/uL Manual Slide Review Large Platelets Immature Plt Fraction 10.7 H (1.1-6.1) % RBC Morphology (Normal) Polychromasia PT (10.0-12.5) sec INR (<1.2) APTT (22.0-30.0) sec D-Dimer (<0.60) mg/L FEU Sodium 142 (137-145) mmol/L Potassium 3.7 (3.5-5.1) mmol/L Chloride 108 (98-107) mmol/L Carbon Dioxide 23.9 (22-30) mmol/L Anion Gap 10.10 mmol/L BUN 15.6 (7-17) mg/dL Creatinine 0.8 (0.52-1.04) mg/dL Est GFR (CKD-EPI) 79 (>=60) Est GFR (CKD-EPI)AfAm (>60 ml/min/1.73 sqM) Est GFR (CKD-EPI)NonAf (>60 ml/min/1.73 sqM) BUN/Creatinine Ratio 19.50 (12.00-20.00) Ratio Glucose 118 H (74-99) mg/dL Plasma Lactic Acid Pacheco (0.7-2.0) mmol/L Calcium 8.7 (8.4-10.2) mg/dL Phosphorus (2.5-4.5) mg/dL Magnesium (1.6-2.3) mg/dL Total Bilirubin 0.4 (0.2-1.3) mg/dL AST 18 (14-36) U/L ALT 16 (4-34) U/L Alkaline Phosphatase 72 (38-126) U/L Troponin I (0.000-0.034) ng/mL NT-Pro-B Natriuret Pep pg/mL Total Protein 5.7 L (6.3-8.2) g/dL Albumin 3.9 (3.5-5.0) g/dL Globulin 1.8 (1.6-3.3) g/dL Albumin/Globulin Ratio 2.17 (1.60-3.17) Ratio TSH 3.530 (0.465-4.680) mIU/L - EKG Data -: EKG Interpreted by Ca - Radiology Data Radiology results: report reviewed (CT brain is negative for acute disease), image reviewed Disposition Clinical Impression: Headache, Near syncope Disposition: ADMITTED IP TO THIS [facility] Condition: Good Is patient prescribed a controlled substance at d/c from ED?: No Time of Disposition: 19:30
[2023-06-11] MEDS ORDERED: SODIUM CHLORIDE 0.9% 1,000 ML IV STA (15:42)
[2023-06-11 16:19] LABS: Basophils % (A) 0 %; Eosinophils # (A) 0.3 k/uL (0-0.7); Eosinophils % (A) 4 %; HCT 39.9 % (34.0-46.0); HGB 13.7 gm/dL (11.4-16.0); Lymphocytes # (A) 4.3 k/uL (1.0-4.8); Lymphocytes % (A) 49 %; MCH 30.7 pg (25.0-35.0); MCHC 34.3 g/dL (31.0-37.0); MCV 89.3 fL (80.0-100.0); Mean Platelet Volume 11.7; Monocytes # (A) 0.5 k/uL (0-1.0); Monocytes % (A) 6 %; Neutrophils # (A) 3.2 k/uL (1.3-7.7); Neutrophils % (A) 37 %; RBC 4.47 m/uL (3.80-5.40); WBC 8.7 k/uL (3.8-10.6)
[2023-06-11 16:23] LABS: ALT 22 U/L (4-34); AST 29 U/L (14-36); African American GFR (CKD) >90 (>60 ml/min/1.73 sqM); Alkaline Phosphatase 78 U/L (38-126); Anion Gap 9 mmol/L; Blood Urea Nitrogen 16 mg/dL (7-17); Calcium 8.7 mg/dL (8.4-10.2); Carbon Dioxide 23 mmol/L (22-30); Chloride 108 mmol/L (98-107); Glucose 112 mg/dL (74-99); Non-African American GFR(CKD) >90 (>60 ml/min/1.73 sqM); Phosphorus 3.6 mg/dL (2.5-4.5); Sodium 140 mmol/L (137-145); Total Bilirubin 0.4 mg/dL (0.2-1.3); Total Protein 6.6 g/dL (6.3-8.2)
[2023-06-11 16:31] LABS: NT-Pro-B-Type Natriuretic Pept 140 pg/mL
[2023-06-11 16:35] LABS: INR 0.9 (<1.2)
[2023-06-11 16:37] LABS: Partial Thromboplastin Time 19.8 sec (22.0-30.0)
[2023-06-11 16:47] LABS: Large Platelets Present; Platelet Count 81 k/uL (150-450)
[2023-06-11 16:48] LABS: Polychromasia Present
--- NOTE | 2023-06-11 17:16 | CT ---
EXAMINATION TYPE: CT brain wo con DATE OF EXAM: 06/11/2023 HISTORY: headache CT DLP: 1095.4 mGycm. Automated Exposure Control for Dose Reduction was Utilized. TECHNIQUE: CT scan of the head is performed without contrast. COMPARISON: None. FINDINGS: There is no acute intracranial hemorrhage or midline shift identified. No mass or mass effe ct. The globes are intact and the paranasal sinuses, middle ear cavities, and mastoid sinus air cells are clear. IMPRESSION: No acute process.
[2023-06-11] MEDS ORDERED: ONDANSETRON 4 MG/2 ML VIAL IVP PRN (19:35)
[2023-06-11] MEDS ORDERED: NALOXONE 0.4 MG/ML 1 ML VIAL IV PRN (19:35)
[2023-06-11] MEDS ORDERED: MORPHINE SULFATE 4 MG/ML SYRINGE IV PRN (19:35)
[2023-06-11] MEDS: SODIUM CHLORIDE 0.9% 1,000 ML IV SCH (19:46)
[2023-06-12] MEDS: SODIUM CHLORIDE 0.9% 1,000 ML IV SCH ×2 (10:39→20:49)
[2023-06-12 11:18] LABS: ALT 16 U/L (8-44); AST 19 U/L (13-35); Albumin 3.8 g/dL (3.8-4.9); Albumin/Globulin Ratio 2.11 Ratio (1.60-3.17); Alkaline Phosphatase 69 U/L (41-126); BUN/Creat Ratio 19.43 Ratio (12.00-20.00); Blood Urea Nitrogen 13.6 mg/dL (9.0-27.0); Calcium 8.6 mg/dL (8.7-10.3); Carbon Dioxide 21.5 mmol/L (21.6-31.8); Chloride 110 mmol/L (96-109); Globulin 1.8 g/dL (1.6-3.3); Glucose 98 mg/dL (70-110); Magnesium 1.9 mg/dL (1.5-2.4); Phosphorus 3.8 mg/dL (2.4-5.1); Potassium 3.6 mmol/L (3.5-5.5); Sodium 141 mmol/L (135-145); Total Bilirubin 0.5 mg/dL (0.3-1.2); Total Protein 5.6 g/dL (6.2-8.2)
--- NOTE | 2023-06-12 11:30 | CA ---
Transthoracic Echo Report Name: Zee Stevens Age: 72 Gender: F : 1950 Exam Date: 06/12/2023 09:46 Exam Location: [facility] Ht (in): 59 Wt (lb): 174 Ordering Physician: Jesús Meléndez DO Attending/Referring Phys: Angela Watt MD Patternmaker Grader Audrey Khanna [facility] Procedure CPT: Indications: Syncope Cardiac Hx: Technical Quality: Technically difficult study Contrast 1: Total Dose (mL): Contrast 2: Total Dose (mL): MEASUREMENTS (Male / Female) Normal Values 2D ECHO LV Diastolic Diameter PLAX 3.3 cm 4.2 - 5.9 / 3.9 - 5.3 cm LV Systolic Diameter PLAX 2.4 cm IVS Diastolic Thickness 0.9 cm 0.6 - 1.0 / 0.6 - 0.9 cm LVPW Diastolic Thickness 0.8 cm 0.6 - 1.0 / 0.6 - 0.9 cm LV Relative Wall Thickness 0.5 LVOT Diameter 2.0 cm Ascending Aorta Diameter 3.1 cm M-MODE Aortic Root Diameter MM 2.6 cm LA Systolic Diameter MM 3.1 cm LA Ao Ratio MM 1.2 AV Cusp Separation MM 2.1 cm DOPPLER AV Peak Velocity 160.5 cm/s AV Peak Gradient 10.3 mmHg AV Mean Velocity 105.0 cm/s AV Mean Gradient 5.1 mmHg AV Velocity Time Integral 34.9 cm LVOT Peak Velocity 107.1 cm/s LVOT Peak Gradient 4.6 mmHg LVOT Velocity Time Integral 23.2 cm LVOT Stroke Volume 72.4 cm??? LVOT Stroke Volume Index 41.7 ml/m??? LVOT Cardiac Index 2345.4 cm???/min???m??? AV Area Cont Eq vti 2.1 cm??? AV Area Cont Eq pk 2.1 cm??? Mitral E Point Velocity 71.4 cm/s Mitral A Point Velocity 60.2 cm/s Mitral E to A Ratio 1.2 MV Deceleration Time 207.9 ms LV E' Lateral Velocity 9.5 cm/s Mitral E to LV E' Lateral Ratio 7.5 LV E' Septal Velocity 11.2 cm/s Mitral E to LV E' Septal Ratio 6.4 TR Peak Velocity 177.6 cm/s TR Peak Gradient 12.6 mmHg Right Atrial Pressure 3.0 mmHg Pulmonary Artery Systolic Pressu 15.6 mmHg Right Ventricular Systolic Press 15.6 mmHg FINDINGS Left Ventricle Left ventricular wall thickness normal. Left ventricular cavity size normal. Normal left ventricular systolic function with no obvious regional wall motion abnormalities. Left ventricular ejection fraction is estimated at 55-60%. Right Ventricle Moderate right ventricular dilatation. Right Atrium Normal right atrial size. Left Atrium Mild left atrial dilatation. Mitral Valve Mitral valve thickened. Mild mitral regurgitation. Aortic Valve Aortic valve not well visualized. No aortic valve stenosis or regurgitation. Tricuspid Valve Structurally normal tricuspid valve. Trace tricuspid regurgitation. Pulmonic Valve Pulmonic valve not well visualized. Pericardium Small anterior echo free space is possibly fat pad. No pericardial effusion Aorta Normal size aortic root and proximal ascending aorta. CONCLUSIONS Normal LV size and systolic function. Mild mitral regurgitation no pulmonary hypertension no pericardial effusion, possible fat pad Previewed by: Dr. Amrita Curtis MD (Electronically Signed) Final Date: 12 June 2023 11:29
[2023-06-12] MEDS ORDERED: CYCLOBENZAPRINE 10 MG TAB PO PRN (11:31)
[2023-06-12] MEDS ORDERED: NITROGLYCERIN SL TABS 0.4 MG TAB SUBLINGUAL PRN (11:31)
[2023-06-12] MEDS ORDERED: HYDROcodone/APAP 5-325MG 1 EACH TAB PO PRN (11:31)
--- NOTE | 2023-06-12 11:43 | P.CRDCN ---
History of Present Illness Consult date: 06/12/23 Consult reason: sycope History of present illness: History of present illness: This is a 72-year-old female patient of Dr. Niru Richard with past medical history of hypertension, dyslipidemia, aortic stenosis, kidney tumor status post resection for right kidney cancer. We have been asked to evaluate the patient for near syncope. Patient states that she was sitting at the table and she suddenly passed out. She also had a headache and had visual loss for a few seconds. This apparently happened 3-4 times yesterday. He she called her daughter and hanging up the phone she was walking in the kitchen and she had another episode where she had to hold onto the counter. Patient denies loss of consciousness. He she has had no episodes since she arrived to the hospital. Patient is seen today in the emergency center while waiting for a bed on the observation unit. EKG sinus rhythm with right bundle branch Chest x-ray: No acute process Platelet count 81 otherwise CBC unremarkable. INR 0.9. D-dimer 0.42. BMP unremarkable. Blood sugar 112. Troponin negative 3. Magnesium 2.0. TSH 1.47. Echocardiogram reveals EF 55-60%. Mild mitral regurgitation. No pulmonary hypertension. No pericardial effusion. Possible fat pad. Home cardiac medications: Nitroglycerin sublingual when necessary. Echocardiogram performed in the office on 11/27/2021 revealed EF 60%, mild left ventricular hypertrophy. Mild aortic stenosis but poorly visualized. Mild mitral regurgitation. Mild to moderate tricuspid regurgitation. Trace to mild pulmonic regurgitation. Normal pulmonary artery systolic pressure. Lexiscan stress test performed in the office on 12/06/2021 revealed a negative stress test. Normal myocardial perfusion and function. Review Of Systems: At the time of my evaluation: Constitutional: No fever, no chills. No weakness, fatigue or lethargy. EENT: No headache. No dizziness. Lungs: No shortness of breath, cough, no sputum production. No wheezing. Cardiovascular: No chest pain, no lower extremity edema. No palpitations. No paroxysmal nocturnal dyspnea. No orthopnea. No lightheadedness or dizziness. No syncopal episodes. Abdominal: No abdominal pain. No nausea, vomiting. No diarrhea. No constipation. No bloody or tarry stools. Genitourinary: No dysuria.. No urinary retention. Musculoskeletal: No myalgias. No muscle weakness, no frequent falls. No back pain. No neck pain. Integumentary: No wounds. No rash. No unusual bruising. Neurologic: No aphasia. No facial droop. No change in mentation. No head injury. No headache. Physical examination: Gen: This is a 72 year old female, sitting on the edge of the ER stretcher and appears to be comfortable and in no acute distress. VS: reviewed blood pressure 124/86, heart rate is in the 50s to 70s, pulse ox 98% on room air, afebrile. HEENT: Head is atraumatic, normocephalic. Pupils equal, round. Sclerae is anicteric. NECK: Supple. No JVD. . LUNGS: Clear to auscultation. No wheezes or rhonchi. No intercostal retractions. HEART: Regular rate and rhythm. No murmur. ABDOMEN: Soft No tenderness. EXTREMITIES: No pedal edema. No calf tenderness. NEUROLOGICAL: Patient is awake, alert and oriented x3. Assessment: Near syncopal episode Hypertension Dyslipidemia Aortic stenosis Plan: Continue telemetry monitoring for arrhythmia Event monitor for 14 days Discontinue nitroglycerin at discharge Follow-up with Dr. Richard in 3 weeks Thank you kindly for this consultation. Nurse practitioner note has been reviewed, I agree with documented findings and plan of care. Patient was seen and examined. Past Medical History Past Medical History: Chest Pain / Angina, Hyperlipidemia Additional Past Medical History / Comment(s): leukemia History of Any Multi-Drug Resistant Organisms: None Reported Past Surgical History: Cholecystectomy, Heart Catheterization, Hernia Repair Past Psychological History: No Psychological Hx Reported Smoking Status: Never smoker Past Alcohol Use History: None Reported Past Drug Use History: None Reported Medications and Allergies Home Medications Medication Instructions Recorded Confirmed Type Cyclobenzaprine [Flexeril] 10 mg PO TID PRN 06/11/23 06/11/23 History HYDROcodone/APAP 5-325MG [[place] 1 tab PO Q6H PRN 06/11/23 06/11/23 History 5-325] Hylands Leg Cramps Caplets 1 - 2 cap PO Q4H PRN 06/11/23 06/11/23 History Nitroglycerin Sl Tabs [Nitrostat] 0.4 mg SUBLINGUAL Q5M PRN 06/11/23 06/11/23 History Umeclidinium Brm/Vilanterol Tr 1 puff INHALATION RT-DAILY 06/11/23 06/11/23 History [Anoro Ellipta 62.5-25 Mcg INH] Allergies Allergy/AdvReac Type Severity Reaction Status Date / Time Penicillins Allergy Rash/Hives Verified 06/11/23 17:38 propoxyphene Allergy Rash/Hives Verified 06/11/23 17:38 [From Darvocet-N 100] atorvastatin AdvReac severe leg Verified 06/11/23 17:44 cramps Physical Exam Vitals: Vital Signs Temp Pulse Pulse Resp BP BP Pulse Ox 06/12/23 08:27 97.7 F 62 18 123/72 96 06/12/23 02:00 77 16 121/56 98 06/11/23 23:31 97.8 F 77 17 120/45 98 06/11/23 22:00 77 18 151/78 96 06/11/23 20:00 70 18 158/76 96 06/11/23 19:23 68 18 158/76 96 06/11/23 18:20 98.1 F 71 18 172/84 95 06/11/23 17:30 74 18 155/71 96 06/11/23 14:43 98.1 F 82 18 116/56 97 Intake and Output 06/11/23 06/12/23 06/12/23 22:59 06:59 14:59 Other: Voiding Method Toilet Results 06/11/23 15:44 06/12/23 05:51 Cardiac Enzymes 06/11/23 06/11/23 06/11/23 Range/Units 15:44 17:10 20:26 AST 29 (14-36) U/L Troponin I <0.012 <0.012 (0.000-0.034) ng/mL 06/12/23 Range/Units 00:00 AST (14-36) U/L Troponin I <0.012 (0.000-0.034) ng/mL Coagulation 06/11/23 Range/Units 15:44 PT 10.0 (10.0-12.5) sec APTT 19.8 L (22.0-30.0) sec CBC 06/11/23 Range/Units 15:44 WBC 8.7 (3.8-10.6) k/uL RBC 4.47 (3.80-5.40) m/uL Hgb 13.7 (11.4-16.0) gm/dL Hct 39.9 (34.0-46.0) % Plt Count 81 L (150-450) k/uL Comprehensive Metabolic Panel 06/11/23 Range/Units 15:44 Sodium 140 (137-145) mmol/L Potassium 4.0 (3.5-5.1) mmol/L Chloride 108 H (98-107) mmol/L Carbon Dioxide 23 (22-30) mmol/L BUN 16 (7-17) mg/dL Creatinine 0.64 (0.52-1.04) mg/dL Glucose 112 H (74-99) mg/dL Calcium 8.7 (8.4-10.2) mg/dL AST 29 (14-36) U/L ALT 22 (4-34) U/L Alkaline Phosphatase 78 (38-126) U/L Total Protein 6.6 (6.3-8.2) g/dL Albumin 4.0 (3.5-5.0) g/dL Current Medications Generic Name Dose Route Start Last Admin Trade Name Freq PRN Reason Stop Dose Admin Sodium Chloride 1,000 mls @ 75 mls/hr 06/11/23 19:45 06/11/23 19:46 Saline 0.9% IV 75 mls/hr .[id number] ALMITA Administration Morphine Sulfate 4 mg 06/11/23 19:35 Morphine Sulfate 4 Mg/Ml Syringe IV Q4HR PRN Severe Pain (Scale 7 to 10) Naloxone HCl 0.2 mg 06/11/23 19:35 Naloxone 0.4 Mg/Ml 1 Ml Vial IV Q2M PRN Opioid Reversal Ondansetron HCl 4 mg 06/11/23 19:35 Ondansetron 4 Mg/2 Ml Vial IVP Q8HR PRN Nausea And Vomiting Intake and Output 06/11/23 06/12/23 06/12/23 22:59 06:59 14:59 Other: Voiding Method Toilet 06/11/23 15:44 06/11/23 15:44
[2023-06-12 12:05] LABS: Basophils # (M) 0.09 X 10*3/uL (0.00-0.10); Eosinophils # (M) 0.18 X 10*3/uL (0.04-0.35); HCT 38.4 % (37.2-46.3); HGB 12.5 g/dL (12.0-15.0); Immature Platelet Fraction 10.6 % (1.1-6.1); Lymphocytes # (M) 6.29 X 10*3/uL (0.90-5.00); MCH 29.9 pg (27.0-32.0); MCHC 32.6 g/dL (32.0-37.0); MCV 91.9 FL (80.0-97.0); Mean Platelet Volume 12.8 FL (9.5-12.2); Monocytes # (M) 0.36 X 10*3/uL (0.20-1.00); NRBC Per 100 WBC 0 X 10*3/uL (0.00-0.01); Neutrophils # (M) 2.19 X 10*3/uL (1.80-7.70); Neutrophils % (M) 24 %; Platelet Count 59 X 10*3/uL (140-440); RBC 4.18 X 10*6/uL (4.10-5.20); RDW 12.9 % (11.5-14.5); WBC 9.12 X 10*3/uL (4.50-10.00)
--- NOTE | 2023-06-12 14:42 | P.HPIM ---
History of Present Illness H&P Date: 06/12/23 Chief Complaint: Syncopal episode at home. This is a history of physical on a 72-year-old patient with history of angina but hyperlipidemia who states that she was doing her normal daily activities and had episode of syncope which was witnessed by her son-in-law. She was having difficulty regaining consciousness and was admitted for appropriate workup. ER evaluation did not show any overt CVA or rhythm issue but she has now been counseled to and will have appropriate workup for syncopal episode. No chest pressure. No anginal equivalent at this time. No previous history of epilepsy. Review of Systems Constitutional: Denies chills, Denies fever Eyes: right discharge, denies blurred vision, denies pain Ears, nose, mouth and throat: Denies headache, Denies sore throat Cardiovascular: Reports lightheadedness, Reports syncope, Denies chest pain, Den ies shortness of breath Gastrointestinal: Denies abdominal pain, Denies diarrhea, Denies nausea, Denies vomiting Genitourinary: Denies dysuria, Denies hematuria Past Medical History Past Medical History: Chest Pain / Angina, Hyperlipidemia Additional Past Medical History / Comment(s): leukemia History of Any Multi-Drug Resistant Organisms: None Reported Past Surgical History: Cholecystectomy, Heart Catheterization, Hernia Repair Past Psychological History: No Psychological Hx Reported Smoking Status: Never smoker Past Alcohol Use History: None Reported Past Drug Use History: None Reported Medications and Allergies Home Medications Medication Instructions Recorded Confirmed Type Cyclobenzaprine [Flexeril] 10 mg PO TID PRN 06/11/23 06/11/23 History HYDROcodone/APAP 5-325MG [[place] 1 tab PO Q6H PRN 06/11/23 06/11/23 History 5-325] Hylands Leg Cramps Caplets 1 - 2 cap PO Q4H PRN 06/11/23 06/11/23 History Umeclidinium Brm/Vilanterol Tr 1 puff INHALATION RT-DAILY 06/11/23 06/11/23 History [Anoro Ellipta 62.5-25 Mcg INH] Allergies Allergy/AdvReac Type Severity Reaction Status Date / Time Penicillins Allergy Rash/Hives Verified 06/11/23 17:38 propoxyphene Allergy Rash/Hives Verified 06/11/23 17:38 [From Darvocet-N 100] atorvastatin AdvReac severe leg Verified 06/11/23 17:44 cramps Physical Exam Vitals: Vital Signs Temp Pulse Pulse Resp BP BP Pulse Ox 06/12/23 10:46 58 L 18 124/86 98 06/12/23 08:27 97.7 F 62 18 123/72 96 06/12/23 02:00 77 16 121/56 98 06/11/23 23:31 97.8 F 77 17 120/45 98 06/11/23 22:00 77 18 151/78 96 06/11/23 20:00 70 18 158/76 96 06/11/23 19:23 68 18 158/76 96 06/11/23 18:20 98.1 F 71 18 172/84 95 06/11/23 17:30 74 18 155/71 96 06/11/23 14:43 98.1 F 82 18 116/56 97 Intake and Output 06/11/23 06/12/23 06/12/23 22:59 06:59 14:59 Other: Voiding Method Toilet - Constitutional General appearance: no acute distress - EENT Eyes: EOMI - Neck Neck: no lymphadenopathy - Respiratory Respiratory: bilateral: CTA - Cardiovascular Rhythm: regular Heart sounds: normal: S1, S2 Abnormal Heart Sounds: no S3 Gallop - Gastrointestinal Obesity noted General gastrointestinal: soft, no tenderness - Neurologic Neurologic: CNII-XII intact - Musculoskeletal Musculoskeletal: strength equal bilaterally Results CBC & Chem 7: 06/12/23 05:51 06/12/23 05:51 Labs: Abnormal Lab Results - Last 24 Hours (Table) 06/11/23 06/11/23 06/11/23 Range/Units 15:44 15:44 15:44 Plt Count 81 L (150-450) k/uL MPV (9.5-12.2) FL Lymphocytes # (Manual) (0.90-5.00) X 10*3/uL Immature Plt Fraction (1.1-6.1) % APTT 19.8 L (22.0-30.0) sec Chloride 108 H (98-107) mmol/L Carbon Dioxide (21.6-31.8) mmol/L Glucose 112 H (74-99) mg/dL Calcium (8.7-10.3) mg/dL Total Protein (6.2-8.2) g/dL 06/12/23 06/12/23 Range/Units 05:51 05:51 Plt Count 59 L (150-450) k/uL MPV 12.8 H (9.5-12.2) FL Lymphocytes # (Manual) 6.29 H (0.90-5.00) X 10*3/uL Immature Plt Fraction 10.6 H (1.1-6.1) % APTT (22.0-30.0) sec Chloride 110 H (98-107) mmol/L Carbon Dioxide 21.5 L (21.6-31.8) mmol/L Glucose (74-99) mg/dL Calcium 8.6 L (8.7-10.3) mg/dL Total Protein 5.6 L (6.2-8.2) g/dL Assessment and Plan (1) Headache Current Visit: Yes Status: Acute Code(s): R51.9 - HEADACHE, UNSPECIFIED SNOMED Code(s): 12548009 (2) Syncope Current Visit: Yes Status: Acute Code(s): R55 - SYNCOPE AND COLLAPSE SNOMED Code(s): 661576714 (3) Hyperlipidemia Current Visit: Yes Status: Acute Code(s): E78.5 - HYPERLIPIDEMIA, UNSPECIFIED SNOMED Code(s): 13616304 Plan: Appreciate cardiology input. Await telemetry monitoring for the next 24 hours. Check CBC and CMP in a.m. Reconcile home medications. The patient is a full code otherwise. Anticipate discharge in the next 24-48 hours. [facility] hospitalist is covering for the weekend.
[2023-06-12] MEDS: IPRATROPIUM 0.5 MG/2.5 ML NEBU INHALATION SCH ×3 (15:27→20:47)
[2023-06-13] MEDS: IPRATROPIUM 0.5 MG/2.5 ML NEBU INHALATION SCH ×4 (09:13→20:11)
[2023-06-13] MEDS: FORMOTEROL FUMARATE 20 MCG/2 ML NEBU INHALATION SCH ×2 (09:13→20:11)
[2023-06-13 09:29] LABS: ALT 16 U/L (8-44); AST 18 U/L (13-35); Albumin 3.9 g/dL (3.8-4.9); Albumin/Globulin Ratio 2.17 Ratio (1.60-3.17); Alkaline Phosphatase 72 U/L (41-126); Blood Urea Nitrogen 15.6 mg/dL (9.0-27.0); Calcium 8.7 mg/dL (8.7-10.3); Carbon Dioxide 23.9 mmol/L (21.6-31.8); Chloride 108 mmol/L (96-109); Globulin 1.8 g/dL (1.6-3.3); Glucose 118 mg/dL (70-110); Potassium 3.7 mmol/L (3.5-5.5); Sodium 142 mmol/L (135-145); Total Bilirubin 0.4 mg/dL (0.3-1.2); Total Protein 5.7 g/dL (6.2-8.2)
[2023-06-13 09:54] LABS: HCT 39.2 % (37.2-46.3); HGB 12.9 g/dL (12.0-15.0); Immature Platelet Fraction 10.7 % (1.1-6.1); MCH 29.7 pg (27.0-32.0); MCHC 32.9 g/dL (32.0-37.0); MCV 90.1 FL (80.0-97.0); Mean Platelet Volume 11.7 FL (9.5-12.2); NRBC Per 100 WBC 0 X 10*3/uL (0.00-0.01); Platelet Count 58 X 10*3/uL (140-440); RBC 4.35 X 10*6/uL (4.10-5.20); RDW 12.9 % (11.5-14.5); WBC 10.56 X 10*3/uL (4.50-10.00)
--- NOTE | 2023-06-13 13:05 | P.PN ---
Subjective Progress Note Date: 06/13/23 The patient is a 72-year-old female who presented to the hospital after experiencing a near syncopal episode. EKG showed sinus rhythm with right bundle branch block and echocardiogram reveals preserved LV function. The patient has not had any recurrence in her symptoms but does report right neck discomfort. She states prior to her near syncopal episode she did have a sharp pain shooting through her right side of her head. She denies any chest pain or chest pressure. No difficulty breathing. GENERAL: Well-appearing, well-nourished and in no acute distress. NECK: Supple without JVD or thyromegaly. LUNGS: Breath sounds clear to auscultation bilaterally. Respiration equal and unlabored. No wheezes, rales or rhonchi. HEART: Regular rate and rhythm without murmurs, rubs or gallops. S1 and S2 hea rd. EXTREMITIES: Normal range of motion, no edema. No clubbing or cyanosis. Peripheral pulses intact and strong. VITALS: Negative orthostatic blood pressure readings TELEMETRY: Sinus rhythm overnight. No bradycardia IMPRESSION: Presyncope Hypertension Dyslipidemia PLAN: Continue with 2 week event monitor Consideration for tilt table testing outpatient if she continues to have positional dizziness Outpatient follow-up with primary senior mortgage underwriter in 1-2 weeks I am dictating on behalf of Dr Rahat Mcnamara's history/physical and assessment/plan. Objective - Vital Signs Vital signs: Vital Signs Temp 98.0 F 06/13/23 07:00 Pulse 70 06/13/23 12:40 Resp 15 06/13/23 09:27 BP 126/66 06/13/23 09:27 Pulse Ox 96 06/13/23 09:27 FiO2 Intake & Output 06/12/23 06/13/23 06/13/23 18:59 06:59 18:59 Intake Total 118 118 Balance 118 118 Weight 78.925 kg Intake: Oral 118 118 Other: Voiding Method Toilet Toilet # Voids 1 1 - Labs CBC & Chem 7: 06/13/23 04:23 06/13/23 04:23 Labs: Abnormal Lab Results - Last 24 Hours (Table) 06/13/23 06/13/23 Range/Units 04:23 04:23 WBC 10.56 H (4.50-10.00) X 10*3/uL Plt Count 58 L (140-440) X 10*3/uL Immature Plt Fraction 10.7 H (1.1-6.1) % Glucose 118 H (70-110) mg/dL Total Protein 5.7 L (6.2-8.2) g/dL
[2023-06-13] MEDS: SODIUM CHLORIDE 0.9% 1,000 ML IV SCH ×2 (15:21→21:36)
--- NOTE | 2023-06-13 17:22 | US ---
EXAMINATION TYPE: US venous doppler duplex UE RT DATE OF EXAM: 06/13/2023 COMPARISON: NONE CLINICAL INDICATION: Female, 72 years old with history of redness at iv site; Pain right arm, redness . Recent IV SIDE PERFORMED: right Right Arm: No evidence of DVT. Superficial thrombus right cephalic vein IMPRESSION: 1. No evidence of right upper extremity DVT. 2. Diffuse SVT involving the right cephalic vein.
--- NOTE | 2023-06-13 20:25 | P.PN ---
Subjective This is a pleasant 72 years old female with past medical history of hyperlipidemia, angina chest pain, leukemia. Presents with 3-4 episodes of near syncope associated with transient loss of vision and headache but she does not pass out reactions she denies weakness numbness or current blurred vision. Also no chest pain or dyspnea. Patient was admitted with normal saline hydration. Vitas looks stable Labs look stable except for mild increase in WBC at 10.5. She has redness of the IV site in the right forearm ultrasound showing diffuse superficial thrombophlebitis with no DVT and this can be treated topically. No need for anticoagulation for that. Because her presyncope associated with visual loss and headache therefore recommend a neurology consults This was discussed with the patient and daughter at bedside and they're agreeable Event monitor is recommended by her director of instruction for 2 weeks and to follow up with Dr. Richard in 3 weeks. Objective - Vital Signs Vital signs: Vital Signs Temp 98.0 F 06/13/23 07:00 Pulse 70 06/13/23 12:40 Resp 15 06/13/23 09:27 BP 126/66 06/13/23 09:27 Pulse Ox 96 06/13/23 09:27 FiO2 Intake & Output 06/12/23 06/13/23 06/13/23 18:59 06:59 18:59 Intake Total 118 118 Balance 118 118 Weight 78.925 kg Intake: Oral 118 118 Other: Voiding Method Toilet Toilet # Voids 1 1 - Exam GENERAL: The patient is alert and oriented x3, not in any acute distress. Well developed, well nourished. HEENT: Pupils are round and equally reacting to light. EOMI. No scleral icterus. No conjunctival pallor. Normocephalic, atraumatic. No pharyngeal erythema. No thyromegaly. CARDIOVASCULAR: S1 and S2 present. No murmurs, rubs, or gallops. PULMONARY: Chest is clear to auscultation, no wheezing , no crackles. ABDOMEN: Soft, nontender, nondistended, normoactive bowel sounds. No palpable organomegaly. MUSCULOSKELETAL: No joint swelling or deformity. -EXTREMITIES: No cyanosis, clubbing, or pedal edema. Mild erythema and redness of the right forearm IV site NEUROLOGICAL: Gross neurological examination did not reveal any focal deficits. SKIN: No rashes. no petechiae. - Labs CBC & Chem 7: 06/13/23 04:23 06/13/23 04:23 Labs: Abnormal Lab Results - Last 24 Hours (Table) 06/13/23 06/13/23 Range/Units 04:23 04:23 WBC 10.56 H (4.50-10.00) X 10*3/uL Plt Count 58 L (140-440) X 10*3/uL Immature Plt Fraction 10.7 H (1.1-6.1) % Glucose 118 H (70-110) mg/dL Total Protein 5.7 L (6.2-8.2) g/dL Assessment and Plan Assessment: 3-4 episodes of presyncope associated with transient loss of vision and headache History of right kidney cancer status post resection History of leukemia Hyperlipidemia Obesity with BMI of 35.1. Right forearm superficial thrombophlebitis Plan: Continue with gentle hydration Neurology consult Topical treatment for right forearm superficial thrombophlebitis Event monitor 2 weeks per director of instruction and follow-up with Dr. Richard 3 weeks Labs and medication were reviewed.. Continue same treatment. Continue with symptomatic treatment. Resume home medication. Monitor labs and vitals. DVT and GI prophylaxis. Further recommendations as per clinical course of the patient DVT prophylaxis: Subcutaneous heparin GI Prophylaxis: Pepcid PT/OT: Pending Prognosis is guarded
[2023-06-13] MEDS: FAMOTIDINE 20 MG/2 ML VIAL IV SCH (20:38)
[2023-06-13] MEDS: HEPARIN SODIUM,PORCINE 5,000 UNIT/ML 1 ML VIAL SQ SCH (20:38)
[2023-06-14] MEDS: FAMOTIDINE 20 MG/2 ML VIAL IV SCH (08:44)
[2023-06-14] MEDS: HEPARIN SODIUM,PORCINE 5,000 UNIT/ML 1 ML VIAL SQ SCH ×2 (08:44→21:31)
[2023-06-14] MEDS: IPRATROPIUM 0.5 MG/2.5 ML NEBU INHALATION SCH ×4 (09:07→20:47)
[2023-06-14] MEDS: FORMOTEROL FUMARATE 20 MCG/2 ML NEBU INHALATION SCH ×2 (09:07→20:47)
--- NOTE | 2023-06-14 13:59 | P.CNNES ---
History of Present Illness Consult date: 06/14/23 Requesting physician: Jacob Suarez Reason for Consult: DIZZINESS WITH TRANSIENT LOSS OF VISION History of Present Illness: Patient is a 72-year-old female came to the hospital by ambulance on 06/11/2023 (3 days ago) for sudden onset of headache and very brief visual blackout. Patient states that she was sitting at the table was thinking about changing the furniture, then all of a sudden she felt as if the head will explode. She noticed sharp pain in the right religion extending to the right occipital region and then across the lower occipital/nuchal region bilaterally. She had pain in the head. When this pain happened, she had a very transient visual blackouts for just a few seconds. She said they're, held her head. The bad pain lasted for about 1-2 minutes which she rated 1000/10. Thereafter it decreased down to 5/10, pounding feeling. She got up to look for something, and the pain hit again with same intensity, and for same duration. She sat down. Patient called her daughter, who called the EMS and then the pain happened again, again lasting for 1-2 minutes. Since she arrived to the hospital, she had about 3-4 more episodes, which she rated 9/10, again involving the same distribution. It then goes down to 4/10. This headache is improved, now it is very mild, 1/10, just telling that it is still there. Patient denies any focal neurological symptoms like numbness tingling, focal weakness, slurred speech or facial droop. As per EMS flow sheet, patient mentioned that she was getting ready to do some housework when she suddenly felt a pressure in the back of her head. She said it initially made her feel like she was going to pass out. She called her daughter when it wouldn't go away. In her daughter called 911. When EMS arrived, patient was alert and oriented in the pressure in the head was still present. Stroke scale was negative. Patient denied any nausea. There were no visual disturbance and when she stood up, the pressure did not change. EKG shows sinus rhythm. Her blood pressure was 161/65, pulse rate 91, respiration 14, saturation 96%. Blood pressure on arrival was 116/56 and temperature 98.1. Patient had orthostatics checked on 06/13/2023 which was essentially negative with supine blood pressure 126/66, sitting 132/84 and standing 140/61. Blood test shows normal CBC, PT/PTT, normal CMP, troponin, TSH. EKG shows sinus rhythm, CT head showed no acute process. I personally reviewed CT head, agree with the findings. Venous Doppler showed no evidence of right upper extremity DVT. Diffuse superficial venous thrombosis involving the right cephalic vein. Patient denies any history of headaches. No family history of cerebral aneurysms. Patient has smoked 1-1/2-2 pack per day for 30 years, quit in 2000. Patient has borderline diabetes, denies hypertension. Review of Systems Constitutional: Denies chills, Denies fever Eyes: denies blurred vision, denies diplopia, denies pain Ears: bilateral: decreased hearing, deny: ear discharge Ears, nose, mouth and throat: Reports headache, Denies nasal congestion, Denies sinus pressure, Denies sore throat, Denies vertigo Cardiovascular: Reports shortness of breath, Denies chest pain Respiratory: Denies cough, Denies excessive sputum Gastrointestinal: Denies abdominal pain, Denies diarrhea, Denies nausea, Denies vomiting Genitourinary: Denies dysuria, Denies hematuria, Denies urge incontinence Musculoskeletal: Reports low back pain, Reports neck pain, Denies frequent falls, Denies neck stiffness Integumentary: Reports color changes, Reports rash (forearm right), Denies pruritus Neurological: Reports as per HPI Psychiatric: Denies anxiety, Denies depression Endocrine: Reports fatigue, Denies weight change Hematologic/Lymphatic: Reports easy bruising Past Medical History Past Medical History: Chest Pain / Angina, Hyperlipidemia Additional Past Medical History / Comment(s): leukemia History of Any Multi-Drug Resistant Organisms: None Reported Past Surgical History: Cholecystectomy, Heart Catheterization, Hernia Repair Additional Past Surgical History / Comment(s): 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 05/2022 Past Psychological History: No Psychological Hx Reported Smoking Status: Former smoker Past Alcohol Use History: None Reported Past Drug Use History: None Reported Medications and Allergies Home Medications Medication Instructions Recorded Confirmed Type Cyclobenzaprine [Flexeril] 10 mg PO TID PRN 06/11/23 06/11/23 History HYDROcodone/APAP 5-325MG [[place] 1 tab PO Q6H PRN 06/11/23 06/11/23 History 5-325] Hylands Leg Cramps Caplets 1 - 2 cap PO Q4H PRN 06/11/23 06/11/23 History Umeclidinium Brm/Vilanterol Tr 1 puff INHALATION RT-DAILY 06/11/23 06/11/23 History [Anoro Ellipta 62.5-25 Mcg INH] Allergies Allergy/AdvReac Type Severity Reaction Status Date / Time Penicillins Allergy Rash/Hives Verified 06/11/23 17:38 propoxyphene Allergy Rash/Hives Verified 06/11/23 17:38 [From Darvocet-N 100] atorvastatin AdvReac severe leg Verified 06/11/23 17:44 cramps Physical Examination - Vital Signs Vital Signs: Vital Signs Temp Pulse Pulse Resp BP BP Pulse Ox 06/14/23 12:42 72 06/14/23 12:31 64 06/14/23 09:26 78 06/14/23 09:15 77 06/14/23 09:10 98 06/14/23 09:07 78 06/14/23 07:00 98.0 F 95 16 101/57 95 06/14/23 02:31 98.2 F 74 15 133/69 96 06/13/23 20:32 72 06/13/23 20:22 74 06/13/23 20:12 76 06/13/23 19:48 98.7 F 79 15 165/82 94 L 06/13/23 16:59 85 06/13/23 16:47 87 06/13/23 14:20 98.3 F 82 16 107/65 95 06/13/23 14:00 16 Intake and Output 06/13/23 06/14/23 06/14/23 22:59 06:59 14:59 Intake Total 118 Balance 118 Intake: Oral 118 Other: Voiding Method Toilet # Voids 1 3 Patient is an elderly female, very pleasant, in no acute distress. Patient is alert awake oriented to time place and person. Speech and language functions are normal. Patient can name and repeat very well. No aphasia or dysarthria. Attention, concentration and fund of knowledge is adequate. On cranial nerve examination, pupils are equal, round and reacting to light, visual cunningham are full on confrontation, with no neglect on double simultaneous stimulation. Extraocular muscles are intact with no nystagmus. Face is symmetric, tongue protrudes to the midline. Palatal elevation and sensation normal, hearing and shoulder shrug normal, facial sensation normal. Patient has significant percussion tenderness over the right occipital notch/greater occipital nerve location. No tenderness involving the left occipital nuchal region. On muscle strength testing, there is no pronator drift and the strength is normal in arms and legs distally and proximally, except right deltoid which is weak about 4+5-related to previous rotator cuff tear. Deep tendon reflexes are symmetric 1-1+ all over and plantars downgoing. Sensory to touch is equal with no neglect on double simultaneous stimulation. Cerebellar function showed no ataxia for [id number] testing. No dysdiadochokinesia. No ataxia for [id number] testing on either side. Tone and bulk of muscles normal. Gait deferred.. On general examination, there is no carotid bruit or murmur, S1-S2 audible. Chest is clear on consultation. Abdomen is soft nontender. No organomegaly, bowel sounds present. Peripheral pulses are present. No peripheral edema. Results - Laboratory Findings CBC and BMP: 06/13/23 04:23 06/13/23 04:23 Abnormal Lab Findings: Abnormal Labs 06/11/23 06/11/23 06/11/23 15:44 15:44 15:44 WBC Plt Count 81 L MPV Lymphocytes # (Manual) Immature Plt Fraction APTT 19.8 L Chloride 108 H Carbon Dioxide Glucose 112 H Calcium Total Protein 06/12/23 06/12/23 06/13/23 05:51 05:51 04:23 WBC 10.56 H Plt Count 59 L 58 L MPV 12.8 H Lymphocytes # (Manual) 6.29 H Immature Plt Fraction 10.6 H 10.7 H APTT Chloride 110 H Carbon Dioxide 21.5 L Glucose Calcium 8.6 L Total Protein 5.6 L 06/13/23 04:23 WBC Plt Count MPV Lymphocytes # (Manual) Immature Plt Fraction APTT Chloride Carbon Dioxide Glucose 118 H Calcium Total Protein 5.7 L Assessment and Plan Assessment: * Sudden onset of right temporal headache extending to the right occipital/nuchal region. Patient has some point tenderness in the right occipital notch, suggestive of possible occipital neuralgia. With sudden onset, would rule out a cerebral aneurysm. * Hypertension * Hyperlipidemia * X tobacco use Plan: * Check CTA of the head and neck to rule out any cerebral aneurysm. * Start Mobic 15 mg daily for possible occipital neuralgia. If symptoms persist, may consider gabapentin. * Continue muscle relaxer. * Check hemoglobin A1c, ESR, CRP. * Orthostatics checked negative. * 2-D echo revealed normal left-ventricular size and systolic function. EF is 55-60%. No obvious regional wall motion abnormalities. Mild left atrial dilation. Possible fat pad. * Patient had developed right forearm IV site infection, currently on Keflex. * Dr. Wilkinson will resume neurology service in the morning. * Thank you for the consult. Addendum: CTA of the head and neck showed no stenosis of the brachiocephalic regions. Mild proximal left ICA stenosis secondary to calcified plaque. Mild proximal right ICA stenosis secondary to calcified plaque. No significant abnormality intracranially. No aneurysm reported.
--- NOTE | 2023-06-14 14:30 | US ---
EXAMINATION TYPE: US carotid duplex BILAT DATE OF EXAM: 06/14/2023 COMPARISON: NONE CLINICAL INDICATION: Female, 72 years old with history of neck pain , right; pain in right neck and h ead, no h/o stroke TECHNIQUE: Carotid duplex ultrasound examination. Indirect Doppler criteria was utilized. FINDINGS: EXAM MEASUREMENTS: RIGHT: Peak Systolic Velocity (PSV) cm/sec ----- Right CCA: 114 ----- Right ICA: 111 ----- Right ECA: 141 ICA/CCA ratio: 0.8 RIGHT: End Diastole cm/sec ----- Right CCA: 25.7 ----- Right ICA: 19.7 ----- Right ECA: 19.7 LEFT: Peak Systolic Velocity (PSV) cm/sec ----- Left CCA: 105 ----- Left ICA: 103 ----- Left ECA: 131 ICA/CCA ratio: 1.0 LEFT: End Diastole cm/sec ----- Left CCA: 20.9 ----- Left ICA: 21.5 ----- Left ECA: 10.5 VERTEBRALS (direction of flow): Right Vertebral: Antegrade Left Vertebral: Antegrade Rhythm: Normal [employer] NOTES: Mild homogeneous plaque with no stenosis seen IMPRESSION: 1. Mild plaque formation in the carotid bulbs and proximal internal carotid arteries bilaterally. 2. No hemodynamically significant stenosis of the common or internal carotid arteries bilaterally. Criteria for Assigning % of Stenosis / Diameter reduction (Estimation based on the indirect measurements of the internal carotid artery velocities (ICA PSV). 1. Normal (no stenosis)=ICA PSV < 125 cm/s: ratio < 2.0: ICA EDV<40 cm/s. 2. Less than 50% stenosis=ICA PSV < 125 cm/s: ratio < 2.0: ICA EDV<40 cm/s. 3. 50 to 69% stenosis=ICA PSV of 125 to 230 cm/s: ration 2.0 ? 4.0: ICA EDV 40-100 cm/s. 4. Greater than 70% stenosis to near occlusion= ICA PSV > 230 cm/s: ratio > 4.0: ICA EDV > 100 cm/s. 5. Near occlusion= ICA PSV velocities may be low or undetectable: variable ratio and ICA EDV. 6. Total occlusion=unable to detect flow.
[2023-06-14] MEDS: CEPHALEXIN 250 MG CAP PO SCH ×3 (15:29→21:31)
[2023-06-14] MEDS: MELOXICAM 7.5 MG TAB PO SCH (15:30)
[2023-06-14] MEDS: SODIUM CHLORIDE 0.9% 1,000 ML IV SCH (15:30)
--- NOTE | 2023-06-14 18:00 | CT ---
EXAMINATION TYPE: CT angio head neck DATE OF EXAM: 06/14/2023 HISTORY: Headache, near syncope. COMPARISON: None CT DLP: 609.9 mGycm. Automated Exposure Control for Dose Reduction was Utilized. TECHNIQUE: CTA scan of the head and neck is performed with IV Contrast, patient injected with 130 ml mL of Isovue 370, axial images are obtained, coronal and sagittal reformatted images are reviewed. 3 D reconstructed images are created on an independent workstation and reviewed. FINDINGS: The brachiocephalic origins are widely patent. There are mild to moderate calcified plaques within the carotid bulbs and proximal internal carotid a rteries bilaterally. Secondary to plaque, there is a mild stenosis of the proximal left internal melara tid artery. There is a mild right proximal internal carotid artery stenosis. The vertebral arteries appear patent in the left vertebral artery slightly dominant to the right. Intracranially, there is no sizable aneurysm sac or vascular malformation. There is no evidence of oc clusive disease. IMPRESSION: 1. No stenosis of the brachial cephalic origins. 2. Mild proximal left internal carotid artery stenosis secondary to calcified plaque. 3. Mild proximal right internal carotid artery stenosis secondary to calcified plaque. 4. No significant abnormality intracranially. NASCET criteria was used in interpretation of this exam?
[2023-06-15] MEDS: SODIUM CHLORIDE 0.9% 1,000 ML IV SCH (05:16)
[2023-06-15] MEDS: CEPHALEXIN 250 MG CAP PO SCH ×2 (08:09→16:15)
[2023-06-15] MEDS: HEPARIN SODIUM,PORCINE 5,000 UNIT/ML 1 ML VIAL SQ SCH (08:10)
[2023-06-15] MEDS: MELOXICAM 7.5 MG TAB PO SCH (08:10)
[2023-06-15] MEDS: FORMOTEROL FUMARATE 20 MCG/2 ML NEBU INHALATION SCH (08:16)
[2023-06-15] MEDS: IPRATROPIUM 0.5 MG/2.5 ML NEBU INHALATION SCH ×3 (08:16→15:51)
--- NOTE | 2023-06-15 08:48 | P.PN ---
Subjective This is a pleasant 72 years old female with past medical history of hyperlipidemia, angina chest pain, leukemia. Presents with 3-4 episodes of near syncope associated with transient loss of vision and headache but she does not pass out reactions she denies weakness numbness or current blurred vision. Also no chest pain or dyspnea. Patient was admitted with normal saline hydration. Vitas looks stable Labs look stable except for mild increase in WBC at 10.5. She has redness of the IV site in the right forearm ultrasound showing diffuse superficial thrombophlebitis with no DVT and this can be treated topically. No need for anticoagulation for that. Because her presyncope associated with visual loss and headache therefore recommend a neurology consults This was discussed with the patient and daughter at bedside and they're agreeable Event monitor is recommended by her manager intensive care for 2 weeks and to follow up with Dr. Richard in 3 weeks. 06/14/2023 Patient no more dizziness or visual problem She has some right-sided neck pain posteriorly and around her right ear, looks mild, no other neurological complaints We ordered carotid Doppler which was unremarkable Neurology consult on the case Right upper extremity ultrasound showing superficial thrombophlebitis, no acute venous thrombosis However redness is more superior than yesterday therefore recommend to start her on oral Keflex. Patient says she is ALLERGIC to penicillin with rash only when she was a kid. She was not sure about cephalosporin energy Daughter at bedside and agree with started antibiotic with close monitoring. Discussed with the bedside nurse Active Medications Generic Name Dose Route Start Last Admin Trade Name Freq PRN Reason Stop Dose Admin Hydrocodone Bitart/Acetaminophen 1 each 06/12/23 11:31 Hydrocodone/Apap 5-325mg 1 Each Tab PO Q6H PRN Pain Cephalexin 250 mg 06/14/23 12:45 06/15/23 08:09 Cephalexin 250 Mg Cap PO 250 mg TID ALMITA Administration Protocol Cyclobenzaprine HCl 10 mg 06/12/23 11:31 Cyclobenzaprine 10 Mg Tab PO TID PRN Muscle Spasm Famotidine 20 mg 06/15/23 09:00 Famotidine 20 Mg/2 Ml Vial IV Q24HR ALMITA Formoterol Fumarate 20 mcg 06/13/23 08:00 06/15/23 08:16 Formoterol Fumarate 20 Mcg/2 Ml Nebu INHALATION 20 mcg RT-BID ALMITA Administration Heparin Sodium (Porcine) 5,000 unit 06/13/23 21:00 06/15/23 08:10 Heparin Sodium,Porcine 5,000 Unit/Ml 1 Ml Vial SQ 5,000 unit Q12HR ALMITA Administration Sodium Chloride 1,000 mls @ 75 mls/hr 06/11/23 19:45 06/15/23 05:16 Saline 0.9% IV Not Given .[id number] ALMITA Ipratropium Ruth 0.5 mg 06/12/23 12:00 06/15/23 08:16 Ipratropium 0.5 Mg/2.5 Ml Nebu INHALATION 0.5 mg RT-QID ALMITA Administration Meloxicam 15 mg 06/14/23 13:45 06/15/23 08:10 Meloxicam 7.5 Mg Tab PO 15 mg DAILY ALMITA Administration Morphine Sulfate 4 mg 06/11/23 19:35 Morphine Sulfate 4 Mg/Ml Syringe IV Q4HR PRN Severe Pain (Scale 7 to 10) Naloxone HCl 0.2 mg 06/11/23 19:35 Naloxone 0.4 Mg/Ml 1 Ml Vial IV Q2M PRN Opioid Reversal Nitroglycerin 0.4 mg 06/12/23 11:31 Nitroglycerin Sl Tabs 0.4 Mg Tab SUBLINGUAL Q5M PRN Chest Pain Ondansetron HCl 4 mg 06/11/23 19:35 Ondansetron 4 Mg/2 Ml Vial IVP Q8HR PRN Nausea And Vomiting Objective - Vital Signs Vital signs: Vital Signs Temp 98.0 F 06/14/23 07:00 Pulse 78 06/14/23 09:26 Resp 16 06/14/23 07:00 BP 101/57 06/14/23 07:00 Pulse Ox 98 06/14/23 09:10 FiO2 Intake & Output 06/13/23 06/14/23 06/14/23 18:59 06:59 18:59 Intake Total 354 Balance 354 Intake: Oral 354 Other: Voiding Method Toilet Toilet # Voids 1 3 - Exam GENERAL: The patient is alert and oriented x3, not in any acute distress. Well developed, well nourished. HEENT: Pupils are round and equally reacting to light. EOMI. No scleral icterus. No conjunctival pallor. Normocephalic, atraumatic. No pharyngeal erythema. No thyromegaly. CARDIOVASCULAR: S1 and S2 present. No murmurs, rubs, or gallops. PULMONARY: Chest is clear to auscultation, no wheezing , no crackles. ABDOMEN: Soft, nontender, nondistended, normoactive bowel sounds. No palpable organomegaly. MUSCULOSKELETAL: No joint swelling or deformity. -EXTREMITIES: No cyanosis, clubbing, or pedal edema. Mild erythema and redness of the right forearm IV site, slightly worse than yesterday NEUROLOGICAL: Gross neurological examination did not reveal any focal deficits. SKIN: No rashes. no petechiae. - Labs CBC & Chem 7: 06/13/23 04:23 06/13/23 04:23 Assessment and Plan Assessment: 3-4 episodes of presyncope associated with transient loss of vision and headache History of right kidney cancer status post resection History of leukemia Hyperlipidemia Obesity with BMI of 35.1. Right forearm superficial thrombophlebitis Plan: Continue with gentle hydration Neurology consult. Carotid duplex was negative for neck pain Topical treatment for right forearm superficial thrombophlebitis, Start oral Keflex with close monitoring Event monitor 2 weeks per manager intensive care and follow-up with Dr. Richard 3 weeks Labs and medication were reviewed.. Continue same treatment. Continue with symptomatic treatment. Resume home medication. Monitor labs and vitals. DVT and GI prophylaxis. Further recommendations as per clinical course of the patient DVT prophylaxis: Subcutaneous heparin GI Prophylaxis: Pepcid PT/OT: Pending Prognosis is guarded
[2023-06-15] MEDS ORDERED: FAMOTIDINE 20 MG/2 ML VIAL IV SCH (09:00)
--- NOTE | 2023-06-15 09:12 | P.DS ---
Providers Date of admission: 06/14/23 05:55 Attending physician: Joao Mcghee Consults: 06/11/23 19:35 Consult Physician Routine Consulting Provider: Clemente Frye Consult Reason/Comments: syncope Do you want consulting provider notified?: Yes 06/13/23 14:17 Consult Physician Routine Consulting Provider: Sheldon Ayers Consult Reason/Comments: DIZZINESS WITH TRANSIENT LOSS OF VISION Do you want consulting provider notified?: Yes Primary care physician: Joao Mcghee - Discharge Diagnosis(es) (1) Headache Current Visit: Yes Status: Acute (2) Hyperlipidemia Current Visit: Yes Status: Acute (3) Syncope Current Visit: Yes Status: Acute Hospital Course: This is a 72-year-old female who was admitted after syncope episode at home in which she did not pass out but had transient loss of vision and headache. Patient had a cardiology and neurology workup which were all normal. She is currently wearing a 14 day event monitor. Patient did develop some superficial thrombo-phlebitis from IV site, will continue Keflex for treatment. Patient reports she no longer has a headache is feeling well and is ready for discharge. Patient is medically cleared for discharged, may continue home medications and we will sent in keflex. Patient seen and evaluated by nurse practitioner, physician in agreement with plan Patient Condition at Discharge: Good Plan - Discharge Summary New Discharge Prescriptions: New Cephalexin [Keflex] 250 mg PO TID 7 Days #21 cap Continue HYDROcodone/APAP 5-325MG [[place] 5-325] 1 tab PO Q6H PRN PRN Reason: Pain Umeclidinium Brm/Vilanterol Tr [Anoro Ellipta 62.5-25 Mcg INH] 1 puff INHALATION RT-DAILY Cyclobenzaprine [Flexeril] 10 mg PO TID PRN PRN Reason: Muscle Spasm Hylands Leg Cramps Caplets 1 - 2 cap PO Q4H PRN PRN Reason: leg cramps Discontinued Nitroglycerin Sl Tabs [Nitrostat] 0.4 mg SUBLINGUAL Q5M PRN PRN Reason: Chest Pain Discharge Medication List Cyclobenzaprine [Flexeril] 10 mg PO TID PRN 06/11/23 [History] HYDROcodone/APAP 5-325MG [[place] 5-325] 1 tab PO Q6H PRN 06/11/23 [History] Hylands Leg Cramps Caplets 1 - 2 cap PO Q4H PRN 06/11/23 [History] Umeclidinium Brm/Vilanterol Tr [Anoro Ellipta 62.5-25 Mcg INH] 1 puff INHALATION RT-DAILY 06/11/23 [History] Cephalexin [Keflex] 250 mg PO TID 7 Days #21 cap 06/15/23 [Rx] Follow up Appointment(s)/Referral(s): Joao Mcghee MD [Primary Care Provider] - 1 Week Bipin Richard MD [STAFF PHYSICIAN] - 3 Weeks Activity/Diet/Wound Care/Special Instructions: event monitor placed Thursday06-12-2023. for 14 days. Discharge Disposition: HOME SELF-CARE
[2023-06-15 14:53] VITALS: BP 115/66; RESP 16; TEMP 98.2
[2023-06-15 16:15] VITALS: PULSE 68
--- NOTE | 2023-07-03 07:40 | CE ---
CARDIAC ELECTROPHYSIOLOGY REPORT STUDY: 14 days event monitor. INDICATION: Rule out cardiac arrhythmia. SUMMARY: The patient was monitored for 14 days. The baseline rhythm appeared to be sinus mechanism. The patient did have sinus tachycardia and sinus bradycardia and 2 episodes of paroxysmal atrial tachycardia. CONCLUSION: 1. This is a 14-day event monitor. 2. The baseline rhythm is sinus mechanism. 3. The patient did have 2 episodes of paroxysmal atrial tachycardia. 4. The patient did have multiple episodes of sinus bradycardia and sinus tachycardia. 5. No evidence of sinus pause or sinus arrest. MMODL / IJN: [id number] /
== END 2023-06-15 16:40 | disposition home or self-care (01) | DRG 123 ==
LOC: EC 14:40 → 6NMEDSUR 19:36 → OBSVTOIN 06-14 05:55
PROVIDERS: ADMIT Family Medicine; ATTEND Family Medicine
DX: H53.123 Transient visual loss, bilateral (principal); I82.611 Acute embolism and thrombosis of superficial veins of right upper extremity; R51.9 Headache, unspecified; R55 Syncope and collapse; R73.03 Prediabetes; X50.1XXA Overexertion from prolonged static or awkward postures, initial encounter; I65.23 Occlusion and stenosis of bilateral carotid arteries; Z28.311 Partially vaccinated for COVID-19; Z85.528 Personal history of other malignant neoplasm of kidney; Z85.6 Personal history of leukemia; Z87.891 Personal history of nicotine dependence; Z88.0 Allergy status to penicillin; Z88.5 Allergy status to narcotic agent; I08.2 Rheumatic disorders of both aortic and tricuspid valves; I45.10 Unspecified right bundle-branch block; I10 Essential (primary) hypertension; E66.9 Obesity, unspecified; Z68.35 Body mass index [BMI] 35.0-35.9, adult; R61 Generalized hyperhidrosis; M62.838 Other muscle spasm
CPT/HCPCS: 36415; 70450; 70496; 70498; 80053; 83036; 83605; 83735; 83880; 84100; 84443; 84484; 85025; 85027; 85379; 85610; 85652; 85730; 86140; 87086; 93005; 93270; 93306; 93880; 94640; 94760; 96360; 96361; 99285

== ENCOUNTER → 2023-08-04 | Outpatient (CLI) | payer MEDICARE, OTHER ==
--- NOTE | 2023-08-04 18:26 | XR ---
EXAMINATION TYPE: XR ribs RT DATE OF EXAM: 08/04/2023 4:47 PM CLINICAL INDICATION:Female, 72 years old with history of G43.009 MIGRAINE; H COMPARISON: 10/31/2010. TECHNIQUE: XR ribs RT; Frontal and oblique views of the ribs with frontal chest radiograph. FINDINGS: Osteophyte formation of the glenoid, humerus and common clavicular joint. Petrous portions of the chest are grossly unremarkable. Overlying calcifications of the costochondral junction limits evaluation the ribs. No displaced rib fracture identified. IMPRESSION: Limited evaluation due to chondrocalcinosis. No obvious displaced fracture.
== END | disposition home or self-care (01) ==
LOC: RADXRMAIN 16:21
PROVIDERS: ATTEND Family Medicine
DX: R07.82 Intercostal pain (principal); G43.009 Migraine without aura, not intractable, without status migrainosus

== ENCOUNTER 2024-01-14 18:08 | Emergency (ER) | payer MEDICARE, OTHER ==
[2024-01-14 18:14] VITALS: RESP 18; TEMP 98
--- NOTE | 2024-01-14 19:47 | ED ---
Fall HPI - General Chief Complaint: Fall Stated Complaint: Fall/L side pain Time Seen by Provider: 01/14/24 19:00 Source: patient, RN notes reviewed Mode of arrival: ambulatory - History of Present Illness Initial Comments: 73-year-old female presenting with chief complaint of fall x 3 hours ago. Patient states she was attempting to walk down the garage stairs when she remembers falling down 3-4 steps. She is unsure if she passed out or if she hit her head. She is now complaining of left hip and knee pain. She is also having pain on the right side of her head. She is able to ambulate. She states she has a history of "blacking out". Denies chest pain, shortness of breath. denies blood thinners. - Related Data Home Medications Medication Instructions Recorded Confirmed Cyclobenzaprine [Flexeril] 10 mg PO TID PRN 06/11/23 06/11/23 HYDROcodone/APAP 5-325MG [[place] 1 tab PO Q6H PRN 06/11/23 06/11/23 5-325] Hylands Leg Cramps Caplets 1 - 2 cap PO Q4H PRN 06/11/23 06/11/23 Umeclidinium Brm/Vilanterol Tr 1 puff INHALATION RT-DAILY 06/11/23 06/11/23 [Anoro Ellipta 62.5-25 Mcg INH] Previous Rx's Medication Instructions Recorded Cephalexin [Keflex] 250 mg PO TID 7 Days #21 cap 06/15/23 Allergies Allergy/AdvReac Type Severity Reaction Status Date / Time Penicillins Allergy Rash/Hives Verified 01/14/24 18:14 propoxyphene Allergy Rash/Hives Verified 01/14/24 18:14 [From Darvocet-N 100] atorvastatin AdvReac severe leg Verified 01/14/24 18:14 cramps Review of Systems ROS Statement: Those systems with pertinent positive or pertinent negative responses have been documented in the HPI. ROS Other: All systems not noted in ROS Statement are negative. 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 Absent: scleral icterus, conjunctival injection, periorbital swelling ENT exam: Present: normal exam, mucous membranes moist Respiratory exam: Present: normal lung sounds bilaterally. Absent: respiratory distress, wheezes, rales, rhonchi, stridor Cardiovascular Exam: Present: regular rate, normal rhythm, normal heart sounds. Absent: systolic murmur, diastolic murmur, rubs, gallop, clicks GI/Abdominal exam: Present: soft, normal bowel sounds. Absent: distended, tenderness, guarding, rebound, rigid Left Hip exam: Present: normal inspection, full ROM, tenderness (Mild diffuse ten derness to left hip). Absent: swelling, deformity Upper Leg exam: Present: normal inspection, full ROM. Absent: tenderness, swelling Knee exam: Present: normal inspection, full ROM, tenderness (Mild diffuse tenderness over anterior aspect of left knee). Absent: swelling, abrasion, laceration Lower Leg exam: Present: normal inspection, full ROM. Absent: tenderness, swelling Ankle exam: Present: normal inspection, full ROM. Absent: tenderness, swelling Foot/Toe exam: Present: normal inspection, full ROM. Absent: tenderness, swelling Neurovascular tendon exam: Present: no vascular compromise Course Vital Signs 01/14/24 01/14/24 18:09 22:29 Temperature 98.0 F Pulse Rate 86 67 Respiratory 18 18 Rate Blood Pressure 142/73 132/74 O2 Sat by Pulse 96 95 Oximetry Medical Decision Making - Medical Decision Making Was pt. sent in by a medical professional or institution (, PA, TECHNICAL MANAGER [employer]ANT, urgent care, hospital, or intermediate...) When possible be specific @ -No Did you speak to anyone other than the patient for history (EMS, parent, family, police, friend...)? What history was obtained from this source @ -Patient's family member supplements history Did you review nursing and triage notes (agree or disagree)? Why? @ -I reviewed and agree with nursing and triage notes Were old charts reviewed (outside hosp., previous admission, EMS record, old EKG, old radiological studies, urgent care reports/EKG's, intermediate records)? Report findings @ -No old charts were reviewed Differential Diagnosis (chest pain, altered mental status, abdominal pain women, abdominal pain men, vaginal bleeding, weakness, fever, dyspnea, syncope, headache, dizziness, GI bleed, back pain, seizure, CVA, palpatations, mental health, musculoskeletal)? @ -Differential Syncope: Valvular disease, hypertrophic cardiomyopathy, pulmonary embolism, tamponade, tachycardia, bradycardia, NM, hypovolemia, hemorrhage, dissection, anemia, intracranial hemorrhage, seizure, hypoglycemia, carbon monoxide poisoning, this is not meant to be an all-inclusive list. EKG interpreted by me (3pts min.). @ -As above X-rays interpreted by me (1pt min.). @ -X-ray of left hip and left knee reveals no acute abnormality. Chest x-ray reveals no acute process CT interpreted by me (1pt min.). @ -CT of head and neck revealed no acute intracranial process. No evidence of C-spine fracture. There is moderate multilevel degenerative disc disease. U/S interpreted by me (1pt. min.). @ -None done What testing was considered but not performed or refused? (CT, X-rays, U/S, labs)? Why? @ -None What meds were considered but not given or refused? Why? @ -None Did you discuss the management of the patient with other professionals (professionals i.e. , PA, TECHNICAL MANAGER [employer], lab, RT, psych nurse, adoption social worker, composing room machinist, teacher, placement officer, telephonic nurse case manager)? Give summary @ -No Was smoking cessation discussed for >3mins.? @ -No Was critical care preformed (if so, how long)? @ -No Were there social determinants of health that impacted care today? How? (Homelessness, low income, unemployed, alcoholism, drug addiction, transportation, low edu. Level, literacy, decrease access to med. care, [place] [facility], rehab)? @ -No Was there de-escalation of care discussed even if they declined (Discuss DNR or withdrawal of care, Hospice)? DNR status @ -No What co-morbidities impacted this encounter? (DM, HTN, Smoking, COPD, CAD, Cancer, CVA, ARF, Chemo, Hep., AIDS, mental health diagnosis, sleep apnea, morbid obesity)? @ -None Was patient admitted / discharged? Hospital course, mention meds given and route, prescriptions, significant lab abnormalities, going to OR and other pert inent info. @ -Patient was discharged. Patient was seen and evaluated for fall. She is unsure if this was a mechanical fall or syncopal episode. Unsure if she hit her head or loss consciousness. Patient is complaining of some left hip and left knee pain and right-sided hip pain at this time. She is able to ambulate. X- ray of the left hip and left knee were negative for acute process. Chest x-ray revealed no acute process. CT of head and neck revealed no acute process. EKG revealed right bundle branch block however compared to May 2023 this is unchanged. Urine reveals trace blood however otherwise is unremarkable. Lab work is significant for platelets of 61 however is improved compared to previous visits, on 06/13 platelets were 58. Bilirubin is 41. Upon reevaluation, philip ent reports she is feeling well and would like to be discharged at this time. Discussed that there appears to be no emergent etiology causing fall upon evaluation today. Discussed elevated bilirubin, patient denies any current abdominal pain and states she will follow-up with her PCP regarding this. Advised close follow-up with PCP for further evaluation. Strict return/alarm symptoms discussed with patient in detail and she shows understanding and agrees to plan. Case discussed with my attending Dr. Rendon. Patient discharged in stable condition. Undiagnosed new problem with uncertain prognosis? @ -No Drug Therapy requiring intensive monitoring for toxicity (Heparin, Nitro, Insulin, Cardizem)? @ -No Were any procedures done? @ -No Diagnosis/symptom? @ -Fall Acute, or Chronic, or Acute on Chronic? @ -Acute Uncomplicated (without systemic symptoms) or Complicated (systemic symptoms)? @ -Uncomplicated Side effects of treatment? @ -No Exacerbation, Progression, or Severe Exacerbation? @ -No Poses a threat to life or bodily function? How? (Chest pain, USA, NM, pneumonia, PE, COPD, DKA, ARF, appy, cholecystitis, CVA, Diverticulitis, Homicidal, Suicidal, threat to staff... and all critical care pts) @ -Low likelihood - Lab Data Result diagrams: 01/14/24 19:46 01/14/24 19:46 Lab Results 01/14/24 01/14/24 01/14/24 Range/Units 19:46 19:46 19:46 WBC 12.6 H (3.8-10.6) k/uL RBC 4.78 (3.80-5.40) m/uL Hgb 13.8 (11.4-16.0) gm/dL Hct 44.2 (34.0-46.0) % MCV 92.5 (80.0-100.0) fL MCH 28.9 (25.0-35.0) pg MCHC 31.3 (31.0-37.0) g/dL RDW 12.9 (11.5-15.5) % Plt Count 61 L (150-450) k/uL MPV 9.1 Neutrophils % 41 % Lymphocytes % 47 % Monocytes % 4 % Eosinophils % 4 % Basophils % 1 % Neutrophils # 5.1 (1.3-7.7) k/uL Lymphocytes # 6.0 H (1.0-4.8) k/uL Monocytes # 0.5 (0-1.0) k/uL Eosinophils # 0.5 (0-0.7) k/uL Basophils # 0.2 (0-0.2) k/uL Manual Slide Review Performed Sodium 138 (137-145) mmol/L Potassium 4.2 (3.5-5.1) mmol/L Chloride 108 H (98-107) mmol/L Carbon Dioxide 25 (22-30) mmol/L Anion Gap 5 mmol/L BUN 16 (7-17) mg/dL Creatinine 0.63 (0.52-1.04) mg/dL Est GFR (CKD-EPI)AfAm >90 (>60 ml/min/1.73 sqM) Est GFR (CKD-EPI)NonAf 90 (>60 ml/min/1.73 sqM) Glucose 88 (74-99) mg/dL Calcium 8.9 (8.4-10.2) mg/dL Total Bilirubin 1.2 (0.2-1.3) mg/dL AST 41 H (14-36) U/L ALT 22 (4-34) U/L Alkaline Phosphatase 80 (38-126) U/L Total Protein 7.7 (6.3-8.2) g/dL Albumin 4.7 (3.5-5.0) g/dL Urine Color Light Yellow Urine Appearance Clear (Clear) Urine pH 5.5 (5.0-8.0) Ur Specific [place] 1.012 (1.001-1.035) Urine Protein Negative (Negative) Urine Glucose (UA) Negative (Negative) Urine Ketones Negative (Negative) Urine Blood Trace H (Negative) Urine Nitrite Negative (Negative) Urine Bilirubin Negative (Negative) Urine Urobilinogen <2.0 (<2.0) mg/dL Ur Leukocyte Esterase Negative (Negative) Urine RBC 2 (0-5) /hpf Urine WBC 1 (0-5) /hpf Ur Squamous Epith Cells <1 (0-4) /hpf Hyaline Casts 1 (0-2) /lpf Urine Mucus Occasional H (None) /hpf - EKG Data -: EKG Interpreted by Me EKG Comments: EKG reveals normal sinus rhythm with right bundle branch block. Ventricular rate 63 bpm, WI interval 143, QRS duration 156, QT/QTc 421/428 Disposition Clinical Impression: Fall Disposition: HOME SELF-CARE Condition: Stable Instructions (If sedation given, give patient instructions): Fall Prevention for Older Adults (ED) Additional Instructions: Please follow-up with PCP regarding elevated bilirubin. Please return to the Emergency Department if symptoms worsen or any other concerns. Is patient prescribed a controlled substance at d/c from ED?: No Referrals: Joao Mcghee MD [Primary Care Provider] - 1-2 days Time of Disposition: 22:23
[2024-01-14 20:07] LABS: Basophils # (A) 0.2 k/uL (0-0.2); Basophils % (A) 1 %; Eosinophils # (A) 0.5 k/uL (0-0.7); Eosinophils % (A) 4 %; HCT 44.2 % (34.0-46.0); HGB 13.8 gm/dL (11.4-16.0); Lymphocytes % (A) 47 %; MCH 28.9 pg (25.0-35.0); MCHC 31.3 g/dL (31.0-37.0); MCV 92.5 fL (80.0-100.0); Mean Platelet Volume 9.1; Monocytes # (A) 0.5 k/uL (0-1.0); Monocytes % (A) 4 %; Neutrophils # (A) 5.1 k/uL (1.3-7.7); Neutrophils % (A) 41 %; RBC 4.78 m/uL (3.80-5.40); RDW 12.9 % (11.5-15.5); WBC 12.6 k/uL (3.8-10.6)
[2024-01-14 20:21] LABS: Appearance,Urine Clear (Clear); Bilirubin,Urine Negative (Negative); Blood,Urine Trace (Negative); Color,Urine Light Yellow; Glucose,Urine (UA) Negative (Negative); Hyaline Casts,Urine 1 /lpf (0-2); Ketones,Urine Negative (Negative); Leukocyte Esterase,Urine Negative (Negative); Mucus,Urine Occasional /hpf; Nitrite,Urine Negative (Negative); PH, Urine 5.5 (5.0-8.0); Protein,Urine Negative (Negative); RBC,Urine 2 /hpf (0-5); Specific Gravity,Urine 1.012 (1.001-1.035); Squamous Epithelial Cell,Urine <1 /hpf (0-4); Urobilinogen,Urine <2.0 mg/dL (<2.0); WBC,Urine 1 /hpf (0-5)
--- NOTE | 2024-01-14 20:31 | XR ---
EXAMINATION TYPE: XR chest 2V DATE OF EXAM: 01/14/2024 8:24 PM CLINICAL INDICATION:Female, 73 years old with history of left hip injury; H COMPARISON: None TECHNIQUE: XR chest 2V Frontal and lateral views of the chest. FINDINGS: Lungs/Pleura: Subsegmental atelectasis present in the lung bases. No pleural effusions or pneumothora x. Pulmonary vascularity: Unremarkable. Heart/mediastinum: Cardiomediastinal silhouette is unremarkable. Musculoskeletal: No acute osseous pathology. Osteoarthritic changes of the bilateral glenohumeral darius nts. IMPRESSION: No acute cardiopulmonary disease/process.
--- NOTE | 2024-01-14 20:32 | XR ---
EXAMINATION TYPE: XR knee complete LT DATE OF EXAM: 01/14/2024 8:24 PM CLINICAL INDICATION:Female, 73 years old with history of left knee injury; [facility] COMPARISON: None. TECHNIQUE: The Left knee(s) was examined in Frontal, lateral and oblique projections. FINDINGS: No evidence of any acute osseous pathology, soft tissue swelling, or joint effusion is no christian. Tricompartmental osteophyte formation involving the femoral condyles, tibial plateau and patella. Mi ld joint space narrowing. IMPRESSION: 1. No acute osseous pathology. 2. Moderate tricompartmental osteoarthritic changes.
--- NOTE | 2024-01-14 20:33 | XR ---
EXAMINATION TYPE: XR Hip Complete LT DATE OF EXAM: 01/14/2024 8:24 PM CLINICAL INDICATION:Female, 73 years old with history of left hip injury; [facility] COMPARISON: None. TECHNIQUE: The left hip was examined in the frontal and lateral projections and a AP pelvis. FINDINGS: No evidence for acute process, joint dislocation or significant soft tissue swelling. IMPRESSION: No acute process.
[2024-01-14 20:45] LABS: ALT 22 U/L (4-34); African American GFR (CKD) >90 (>60 ml/min/1.73 sqM); Anion Gap 5 mmol/L; Blood Urea Nitrogen 16 mg/dL (7-17); Calcium 8.9 mg/dL (8.4-10.2); Carbon Dioxide 25 mmol/L (22-30); Chloride 108 mmol/L (98-107); Glucose 88 mg/dL (74-99); Non-African American GFR(CKD) 90 (>60 ml/min/1.73 sqM); Sodium 138 mmol/L (137-145)
--- NOTE | 2024-01-14 20:45 | CT ---
EXAMINATION TYPE: CT brain cspine wo con CT DLP: 1440.3 mGycm, Automated exposure control for dose reduction was used. DATE OF EXAM: 01/14/2024 8:34 PM COMPARISON: None. CLINICAL INDICATION:Female, 73 years old with history of pain; fall. TECHNIQUE: Brain: Multiple axial CT images of the brain were obtained without IV contrast. Cspine: Axial CT images from the skull base to the inferior aspect of T2 we obtained without intraven ous contrast. Coronal and sagittal reformatted images were also reviewed. FINDINGS: Brain: Extra-axial spaces: No abnormal extra-axial fluid collections. Ventricular system: Within normal limits Cerebral parenchyma: No acute intraparenchymal hemorrhage or mass effect. The lopez-white junction is well differentiated. Scattered hypoattenuating areas are seen within the white matter. Cerebellum: Unremarkable. Mass effect: No evidence of midline shift. Intracranial vasculature: Atherosclerotic calcifications of the intracranial vessels. Soft tissues: Normal. Calvarium/osseous structures: No depressed skull fracture. Paranasal sinuses and mastoid air cells: Clear. Visualized orbits: Orbital contents are intact. Cervical spine: Fracture: None. Osseous structures: Moderate multilevel degenerative changes of the cervical spine are appreciated. Vertebral alignment: There is straightening of normal cervical lordotic curve. Spinal canal/Neural Foramina: Extra dural defects and could posterior longitudinal ligament and disc osteophyte complex is identified. At least moderate spinal canal stenosis, most pronounced at the C5- C6 level. Neck soft tissues: Prevertebral soft tissues are within normal limits. Multiple prominent cervical ly mph nodes are present, likely reactive. Other: The airway is patent. The lung apices are clear. IMPRESSION: CT brain: 1. No acute intracranial process. CT cervical spine: 1. No evidence of cervical spine fracture. 2. Moderate multilevel degenerative disc disease.
[2024-01-14 20:51] LABS: AST 41 U/L (14-36); Albumin 4.7 g/dL (3.5-5.0); Alkaline Phosphatase 80 U/L (38-126); Potassium 4.2 mmol/L (3.5-5.1); Total Bilirubin 1.2 mg/dL (0.2-1.3); Total Protein 7.7 g/dL (6.3-8.2)
[2024-01-14 20:56] LABS: Platelet Count 61 k/uL (150-450)
[2024-01-14 22:45] VITALS: BP 132/74; PULSE 67
== END 2024-01-14 22:45 | disposition home or self-care (01) ==
LOC: EC 18:08
DX: M50.30 Other cervical disc degeneration, unspecified cervical region (principal); I45.10 Unspecified right bundle-branch block; Z88.0 Allergy status to penicillin; Z88.5 Allergy status to narcotic agent; Z88.8 Allergy status to other drugs, medicaments and biological substances; W10.8XXA Fall (on) (from) other stairs and steps, initial encounter; Y92.59 Other trade areas as the place of occurrence of the external cause
CPT/HCPCS: 36415; 70450; 71046; 72125; 73502; 80053; 81001; 85025; 93005; 99284

== ENCOUNTER 2024-01-29 12:56 | Emergency (ER) | payer MEDICARE ==
[2024-01-29 13:03] VITALS: RESP 18
--- NOTE | 2024-01-29 13:22 | ED ---
Chest Pain HPI - General Chief Complaint: Chest Pain Stated Complaint: Chest pain Time Seen by Provider: 01/29/24 13:01 Source: EMS, RN notes reviewed, old records reviewed Mode of arrival: EMS Limitations: no limitations - History of Present Illness Initial Comments: This is a 73-year-old female to the ER for chest pain today chest pain that was given nitro, patient's chest pain is currently improved. Nitro did help after she took a second nitro pill. Patient does occasionally take nitro for chest pain and currently is chest pain-free. Has been feeling well lately with no shortness of breath no travels no sick contacts no other complaints currently MD Complaint: chest pain -: days(s) Onset: during rest, during exertion Pain Location: substernal, left chest Pain Radiation: none Severity: moderate Severity scale (1-10): 4 Quality: tightness, heaviness Consistency: constant Improves With: nothing Worsens With: nothing Context: recent surgery, new medications Anginal Symptoms: dyspnea Other Symptoms: palpitations Treatments Prior to Arrival: none - Related Data Home Medications Medication Instructions Recorded Confirmed Cyclobenzaprine [Flexeril] 10 mg PO TID PRN 06/11/23 06/11/23 HYDROcodone/APAP 5-325MG [[place] 1 tab PO Q6H PRN 06/11/23 06/11/23 5-325] Hylands Leg Cramps Caplets 1 - 2 cap PO Q4H PRN 06/11/23 06/11/23 Umeclidinium Brm/Vilanterol Tr 1 puff INHALATION RT-DAILY 06/11/23 06/11/23 [Anoro Ellipta 62.5-25 Mcg INH] Previous Rx's Medication Instructions Recorded Cephalexin [Keflex] 250 mg PO TID 7 Days #21 cap 06/15/23 Allergies Allergy/AdvReac Type Severity Reaction Status Date / Time Penicillins Allergy Rash/Hives Verified 01/29/24 13:02 propoxyphene Allergy Rash/Hives Verified 01/29/24 13:02 [From Darvocet-N 100] atorvastatin AdvReac severe leg Verified 01/29/24 13:02 cramps Review of Systems ROS Statement: Those systems with pertinent positive or pertinent negative responses have been documented in the HPI. ROS Other: All systems not noted in ROS Statement are negative. 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 Absent: scleral icterus, conjunctival injection, periorbital swelling ENT exam: Present: normal exam, mucous membranes moist Neck exam: Present: normal inspection. Absent: tenderness, meningismus, lymphadenopathy Respiratory exam: Present: normal lung sounds bilaterally. Absent: respiratory distress, wheezes, rales, rhonchi, stridor Cardiovascular Exam: Present: regular rate, normal rhythm, normal heart sounds. Absent: systolic murmur, diastolic murmur, rubs, gallop, clicks GI/Abdominal exam: Present: soft, normal bowel sounds. Absent: distended, tenderness, guarding, rebound, rigid Extremities exam: Present: normal inspection, full ROM, normal capillary refill. Absent: tenderness, pedal edema, joint swelling, calf tenderness Back exam: Present: normal inspection Neurological exam: Present: alert, oriented X3, CN II-XII intact Psychiatric exam: Present: normal affect, normal mood Skin exam: Present: warm, dry, intact, normal color. Absent: rash Course Vital Signs 01/29/24 01/29/24 12:59 15:25 Temperature 98.5 F 97.9 F Pulse Rate 73 67 Respiratory 18 18 Rate Blood Pressure 136/76 152/74 O2 Sat by Pulse 99 96 Oximetry - Reevaluation(s) Reevaluation #1: 01/29/24 15:08 Was reviewed Reevaluation #2: 01/29/24 15:08 Chest pain is resolved Reevaluation #3: 01/29/24 15:09 Patient is informed of results and questions answered Reevaluation #4: Was pt. sent in by a medical professional or institution (, MARY, CIRCLE BEVELER, urgent care, hospital, or intermediate...) When possible be specific @ -no Did you speak to anyone other than the patient for history (EMS, parent, family, police, friend...)? What history was obtained from this source @ -no Did you review nursing and triage notes (agree or disagree)? Why? @ -agree Are old charts reviewed (outside hosp., previous admission, EMS record, old EKG, old radiological studies, urgent care reports/EKG's, intermediate records)? Report findings @ -yes Differential Diagnosis (chest pain, altered mental status, abdominal pain women, abdominal pain men, vaginal bleeding, weakness, fever, dyspnea, syncope, headache, dizziness, GI bleed, back pain, seizure, CVA, palpatations, mental health, musculoskeletal)? @ -prior EKG interpreted by me (3pts min.). @ -yes X-rays interpreted by me (1pt min.). @ -yes negative for acute disease CT interpreted by me (1pt min.). @ -no U/S interpreted by me (1pt. min.). @ -no What testing was considered but not performed or refused? (CT, X-rays, U/S, labs)? Why? @ -none What meds were considered but not given or refused? Why? @ -none Did you discuss the management of the patient with other professionals (professionals i.e. MARY Han, CIRCLE BEVELER, lab, RT, psych nurse, social media analyst, band manager, teacher, disabilities services officer, field case manager)? Give summary @ -no Was smoking cessation discussed for >3mins.? @ -no Was critical care preformed (if so, how long)? @ -no Were there social determinants of health that impacted care today? How? (Homelessness, low income, unemployed, alcoholism, drug addiction, transportation, low edu. Level, literacy, decrease access to med. care, senior living, rehab)? @ -none Was there de-escalation of care discussed even if they declined (Discuss DNR or withdrawal of care, Hospice)? DNR status @ -no What co-morbidities impacted this encounter? (DM, HTN, Smoking, COPD, CAD, Cancer, CVA, ARF, Chemo, Hep., AIDS, mental health diagnosis, sleep apnea, morbid obesity)? @ -none Was patient admitted / discharged? Hospital course, mention meds given and route, prescriptions, significant lab abnormalities, going to OR and other pertinent info. @ - 73 female with chest pain chest pain resolved by nitro, patient feels well and can be discharged home Discharge Undiagnosed new problem with uncertain prognosis? @ -no Drug Therapy requiring intensive monitoring for toxicity (Heparin, Nitro, Insulin, Cardizem)? @ -no Were any procedures done? @ -no Diagnosis/symptom? @ -Chest pain Acute, or Chronic, or Acute on Chronic? @ -Acute Uncomplicated (without systemic symptoms) or Complicated (systemic symptoms)? @ -Complicated Side effects of treatment? @ -no Exacerbation, Progression, or Severe Exacerbation? @ -exacerbation Poses a threat to life or bodily function? How? (Chest pain, USA, [place], pneumonia, PE, COPD, DKA, ARF, appy, cholecystitis, CVA, Diverticulitis, Homicidal, Suicidal, threat to staff... and all critical care pts) @ -yes with chest pain Reevaluation #5: Differential Chest Pain: Stable Angina, Unstable Angina, STEMI, NSTEMI Aortic Dissection, Pneumothorax, Musculoskeletal, Esophageal Spasm GERD, Cholecystitis, Pancreatitis, Zoster, this is not meant to be an all-inclusive list. Chest Pain MDM - MDM 73 female with chest pain chest pain resolved by nitro, patient feels well and can be discharged home Disposition Clinical Impression: Chest pain Disposition: HOME SELF-CARE Condition: Good Instructions (If sedation given, give patient instructions): Chest Pain (ED) Is patient prescribed a controlled substance at d/c from ED?: No Referrals: Joao Mcghee MD [Primary Care Provider] - 1-2 days Time of Disposition: 15:00
--- NOTE | 2024-01-29 13:30 | XR ---
EXAMINATION TYPE: XR chest 2V DATE OF EXAM: 01/29/2024 COMPARISON: 01/14/2020 TECHNIQUE: PA and lateral views submitted. HISTORY: Chest pain FINDINGS: The lungs are clear and there is no pneumothorax, pleural effusion, or focal pneumonia. Heart size normal and no overt failure. Osseous structures demonstrate hypertrophic and degenerative changes of the spine. Surgical clips gallbladder fossa. Underlying COPD with coarsened interstitium likely refle cting chronic interstitial lung disease. Arthropathy of the shoulders, diffuse osteopenia with surgic al change. IMPRESSION: 1. No acute process. 2. COPD, correlate for pulmonary fibrosis.
[2024-01-29 13:36] LABS: ALT 17 U/L (4-34); African American GFR (CKD) >90 (>60 ml/min/1.73 sqM); Albumin 4.4 g/dL (3.5-5.0); Anion Gap 7 mmol/L; Blood Urea Nitrogen 15 mg/dL (7-17); Calcium 8.9 mg/dL (8.4-10.2); Carbon Dioxide 21 mmol/L (22-30); Chloride 109 mmol/L (98-107); Glucose 123 mg/dL (74-99); Non-African American GFR(CKD) >90 (>60 ml/min/1.73 sqM); Sodium 137 mmol/L (137-145); Total Bilirubin 0.9 mg/dL (0.2-1.3)
[2024-01-29 13:37] LABS: Basophils # (A) 0.1 k/uL (0-0.2); Basophils % (A) 1 %; Eosinophils # (A) 0.4 k/uL (0-0.7); Eosinophils % (A) 5 %; HCT 40.9 % (34.0-46.0); HGB 13.8 gm/dL (11.4-16.0); Lymphocytes # (A) 5.2 k/uL (1.0-4.8); Lymphocytes % (A) 54 %; MCH 30.3 pg (25.0-35.0); MCHC 33.7 g/dL (31.0-37.0); MCV 89.9 fL (80.0-100.0); Mean Platelet Volume 11.7; Monocytes # (A) 0.4 k/uL (0-1.0); Monocytes % (A) 4 %; Neutrophils # (A) 3.2 k/uL (1.3-7.7); Neutrophils % (A) 33 %; RBC 4.55 m/uL (3.80-5.40); RDW 12.9 % (11.5-15.5); WBC 9.7 k/uL (3.8-10.6)
[2024-01-29 13:38] LABS: AST 32 U/L (14-36); Alkaline Phosphatase 64 U/L (38-126); Magnesium 1.9 mg/dL (1.6-2.3); Partial Thromboplastin Time 23.4 sec (22.0-30.0); Potassium 4.8 mmol/L (3.5-5.1); Prothrombin Time 10.8 sec (10.0-12.5)
[2024-01-29 14:07] LABS: Platelet Count 39 k/uL (150-450)
[2024-01-29 15:28] VITALS: BP 152/74; PULSE 67; TEMP 97.9
== END 2024-01-29 15:28 | disposition home or self-care (01) ==
LOC: EC 12:56
DX: R07.89 Other chest pain (principal); Z88.0 Allergy status to penicillin; Z88.8 Allergy status to other drugs, medicaments and biological substances
CPT/HCPCS: 36415; 71046; 80053; 83735; 84484; 85025; 85610; 85730; 93005; 99285

== ENCOUNTER → 2024-08-10 | Outpatient (CLI) | payer MEDICARE ==
--- NOTE | 2024-08-10 17:12 | US ---
EXAMINATION TYPE: US thyroid st tissue head/neck DATE OF EXAM: 08/10/2024 COMPARISON: NONE CLINICAL INDICATION: Female, 73 years old with history of E04.1 THYROID NODULE; Thyroid nodules TECHNIQUE: Grayscale and color Doppler imaging of the thyroid gland. FINDINGS: GLAND SIZE: Right Lobe: 4.5 x 1.2 x 1.8 cm Overall Parenchyma: homogeneous Left Lobe: 4.1 x 1.7 x 1.8 cm Overall Parenchyma: heterogeneous Isthmus Thickness: .3 cm NODULES RIGHT: # of nodules measured on right: 1 1. 1.7 X 0.7 x 1.2 cm, upper medial, Prior size: no previous TIRADS Score: 4 TIRADS Category 4: Composition: Solid or almost completely solid (2 points). Echogenicity: Hypoechoic (2 points). Shape: Wider than tall (0 points). Margin: Smooth (0 points). Recommendation: If >1.5cm: FNA; If >1cm: Follow up at 1,2, 3,5 years LEFT: # of nodules measured on left: 1 1. 1.7 X .9 x 1.3 cm, upper lateral, Prior size: no previous. TIRADS Score: 3 TIRADS Category 3: Mildly Suspicious Composition: Mixed cystic and solid (1 point). Echogenicity: Hypoechoic (2 points). Shape: Wider than tall (0 points). Margin: Smooth (0 points). Recommendation: If >2.5cm: FNA; If >1.5cm: Follow up at 1,3,5 years ISTHMUS: # of nodules measured in the isthmus: 0 Bilateral hypoechoic areas seen largest on right .9 x .6 cm. Left 1.0 x .4 cm. IMPRESSION: Right thyroid nodule that meet criteria for tissue sampling if not already performed. [facility], , 08/10/2024 5:09 PM
== END | disposition home or self-care (01) ==
LOC: RADUSWWP 14:53
PROVIDERS: ATTEND Internal Medicine Hematology & Oncology
DX: D72.820 Lymphocytosis (symptomatic) (principal); E04.1 Nontoxic single thyroid nodule; E78.5 Hyperlipidemia, unspecified; D69.6 Thrombocytopenia, unspecified; M12.9 Arthropathy, unspecified
CPT/HCPCS: 76536

== ENCOUNTER → 2024-08-20 | Outpatient (CLI) | payer MEDICARE ==
--- NOTE | 2024-08-20 17:25 | MR ---
EXAMINATION TYPE: MR abdomen wo/w con DATE OF EXAM: 08/20/2024 2:52 PM INDICATION: Patient age:Female; 73 years old; Reason for study: C64.1, D72.820, D69.6, M12.9, E78.5; [facility]. COMPARISON: CT abdomen and pelvis 04/22/2022, abdominal ultrasound 01/08/2022 TECHNIQUE: Multiplanar multi-sequence imaging was performed of the abdomen without and with IV contr ast. The patient was given 7.5 ccs of Gadobutrol intravenously and dynamic imaging was performed. Pos t IV contrast subtraction images were also submitted for review. FINDINGS: LOWER CHEST: Few enlarged right axillary lymph nodes measuring up to 1.6 cm. ABDOMEN Liver: Unremarkable. Gallbladder and Bile ducts: Postcholecystectomy changes. Stable mild intrahepatic ductal dilatation m easuring up to 9 mm likely related to physiologic changes from cholecystectomy. No discrete filling d efect identified. No abrupt occlusion. Pancreas: Unremarkable. Spleen: Unremarkable. Adrenal glands: Unremarkable. Kidneys: No hydronephrosis. Posttreatment changes from reported cryoablation involving the medial asp ect of the superior pole of the right kidney measuring a region approximately 2.3 cm (series [id number], broderick ge 262). There is some curvilinear enhancement in this region on postcontrast imaging. A couple of calzada bcentimeter T2 hyperintense bilateral renal cysts. Stable cortical defect involving the posterior asp ect of the right mid kidney. Stomach and Bowel: No evidence of bowel obstruction. Distal colonic diverticulosis. Peritoneum: No evidence of pneumoperitoneum or free fluid. Stable mildly enlarged peripancreatic lym ph nodes measuring up to 1.3 cm short axis back to 2021 CT (series 601, image 41). Vasculature: Unremarkable. No aortic aneurysm. Abdominal wall: Unremarkable. Musculoskeletal: The osseous structures appear intact. IMPRESSION: 1. Posttreatment changes of known right renal mass with some curvilinear enhancement in this region. This may represent posttreatment changes however underlying residual/recurrent neoplasm is not exclu ded. Correlation with prior imaging is recommended otherwise consider follow-up MR in 3-6 months. 2. Decreased size of nonspecific mildly enlarged peripancreatic lymph nodes dating back to 2021. 3. Mildly enlarged nonspecific right axillary lymph nodes demonstrated. Further evaluation with ultr asound is recommended. [facility], , 08/20/2024 5:22 PM
== END | disposition home or self-care (01) ==
LOC: RADMRIMAIN 13:35
PROVIDERS: ATTEND Internal Medicine Hematology & Oncology
DX: C64.1 Malignant neoplasm of right kidney, except renal pelvis (principal); D72.820 Lymphocytosis (symptomatic); D69.6 Thrombocytopenia, unspecified; M12.9 Arthropathy, unspecified; E78.5 Hyperlipidemia, unspecified; N28.89 Other specified disorders of kidney and ureter; R59.0 Localized enlarged lymph nodes
CPT/HCPCS: 74183; A9585